=== PATIENT | male | born 1955 | race Caucasian/White ===

== ENCOUNTER 2019-09-27 09:56 | Observation (INO) | payer OTHER ==
[2019-09-27 10:35] VITALS: BMI 27.7
[2019-09-27] MEDS ORDERED: DIPHENHYDRAMINE 25 MG TAB/CAP PO PRN (11:00)
[2019-09-27] MEDS ORDERED: POLYETHYL GLY 3350 17 GM/DOSE PO PRN (11:00)
[2019-09-27] MEDS ORDERED: ONDANSETRON 4 MG/2 ML VIAL IV PRN (11:00)
[2019-09-27] MEDS ORDERED: LOPERAMIDE HCL 2 MG CAPSULE PO PRN (11:00)
[2019-09-27] MEDS ORDERED: ACETAMINOPHEN 325 MG TABLET PO PRN (11:00)
[2019-09-27] MEDS ORDERED: ONDANSETRON 4 MG (ODT) TAB PO PRN (11:00)
[2019-09-27] MEDS ORDERED: NACHLORIDE 0.45% 1,000 ML IV SCH (11:00)
[2019-09-27 11:26] LABS: Absolute Lymphocytes (CBC) 1.4 K/uL (0.7-4.9); Basophils % 0.3 % (0-1.3); Hematocrit 35.7 % (39.6-49.0); Lymphocytes % 25.1 % (15.3-44.8); MPV 10.3 fL (7.6-11.3); RBC Red Blood Cell Count 3.39 M/uL (4.33-5.43)
[2019-09-27 11:31] LABS: Protime INR 1.02
[2019-09-27 11:46] VITALS: O2SAT 96
[2019-09-27 12:21] LABS: ALT/SGPT 227 U/L (12-78); Albumin 2.7 g/dL (3.4-5.0); Alkaline Phosphatase 286 U/L (45-117); Amylase Level 100 U/L (25-115); BUN Blood Urea Nitrogen 8 mg/dL (7-18); Bicarbonate 29 mmol/L (21-32); Bilirubin Direct 1.7 mg/dL (0-0.2); Bilirubin Total 1.7 mg/dL (0.2-1.0); Glucose Level 112 mg/dL (74-106); HDL Cholesterol 19 mg/dL (40-60); LDL Cholesterol, Calculated ND (<130); Lipase 511 U/L (73-393); Magnesium 1.8 mg/dL (1.8-2.4); Phosphorus 2.3 mg/dL (2.5-4.9); Potassium 4.1 mmol/L (3.5-5.1); Protein, Total 7.9 g/dL (6.4-8.2); Sodium Level 131 mmol/L (136-145)
[2019-09-27 12:30] LABS: AST/SGOT 541 U/L (15-37); Blood Morphology Comment NOTED (NOT SEEN); Macrocytosis 1+; Platelet Estimate ADEQ; Urine White Blood Cell Casts OK
[2019-09-27 12:55] LABS: LDL, Direct 211 mg/dL (100-129)
[2019-09-27] MEDS ORDERED: INFLUENZA VACCINE (for 3y+) 0.5 ML DOSE IMVAC ONE (13:00)
[2019-09-27 13:14] LABS: Urine Appearance CLEAR; Urine Blood NEGATIVE (NEG); Urine Color DK YELLOW; Urine Glucose NEGATIVE (NEG); Urine Protein TRACE (NEG)
--- NOTE | 2019-09-27 13:37 | RAD REPORT ---
EXAM DESCRIPTION: CT - Abdomen Pelvis W Contrast - 09/27/2019 1:14 pm CLINICAL HISTORY: elevated liver enzymes COMPARISON: No comparisons TECHNIQUE: Biphasic, helical CT imaging of the abdomen and pelvis was performed following 100 ml non -ionic IV contrast. Oral contrast was given. All CT scans are performed using dose optimization technique as appropriate and may include automated exposure control or mA/KV adjustment according to patient size. FINDINGS: No suspicious findings in the lung bases. Patient has small hiatal hernia. Liver size is normal. No focal liver lesions seen. There is fatty infiltration throughout the liver. Patient has a geographic fatty infiltration pattern present. Left lobe of the liver does have fatty i nfiltration but to a lesser severity than the right lobe. Portal vein enhances normally. No liver cap ted nodularity. The spleen and pancreas show no suspicious findings. Gallbladder and biliary tree are also without lopez spicious finding. Symmetric renal function is seen with no hydronephrosis or suspicious renal mass. No pyelonephritis o r acute parenchymal process. No bladder abnormalities. No adrenal abnormalities. No prostate gland or seminal vesicle abnormality. Pelvic floor assessment is limited due to spray artifact from the right hip prosthesis. No dilated bowel loops or bowel wall thickening. Gastric assessment is limited due to the absence of content within the gastric lumen. No dilated large or small bowel. The appendix is normal. Patient lin s sigmoid diverticulosis and redundancy. No diverticulitis. No free air, free fluid or pneumatosis. T here is a mild blush or congested appearance to the central mesenteric fat. This can be commonly seen without a corresponding diagnosis. The patient has a few small mesenteric lymph nodes under 1 centim eter. The small bowel loops in this region do not show wall thickening or other acute component. No hernia, mass or bulky lymphadenopathy. There is a 15 millimeter soft tissue density in the poste rior right pelvis (image 59/92) that is probably a lymph node. This is relatively low-density soft ti ssue. In the absence of any other similar finding this is probably not of significance. Disc and bone degenerative changes are present. No acute component seen. Arterial tree calcifications are present. No acute vascular finding. IMPRESSION: Patient has fatty infiltration throughout the liver with no focal liver lesion. This is a geographic distribution with the fatty infiltration less severe in the left lobe. Additional nonacute findings are detailed in the body of the report. No worrisome or emergent finding seen.
[2019-09-27 13:43] LABS: Urine Bacteria <20 /HPF (NONE SEEN); Urine Bilirubin 1+/C (NEG); Urine Culture Reflex Order NOT NEEDED; Urine RBC <5 /HPF (NONE SEEN)
--- NOTE | 2019-09-27 14:18 | RAD REPORT ---
EXAM DESCRIPTION: RAD - Chest Pa And Lat (2 Views) - 09/27/2019 2:01 pm CLINICAL HISTORY: abd pain COMPARISON: Chest Single View dated 10/29/2017 TECHNIQUE: Frontal and lateral views of the chest were obtained. FINDINGS: The lungs are clear. Lung markings are similar to comparison. Heart size is normal and ce ntral vasculature is within normal limits. No pleural effusion or pneumothorax seen. No acute bony finding noted. No aortic abnormality. IMPRESSION: No acute cardiopulmonary process. No significant interval change.
--- NOTE | 2019-09-27 17:11 | EKG ---
Test Date: 2019-09-27 Test Time: 14:34:21 Morning Caregiver: LILY MEASUREMENT RESULTS: Intervals: Rate: 65 UT: 174 QRSD: 100 QT: 416 QTc: 432 [place]: P: 79 UT: 174 QRS: 67 T: 65 INTERPRETIVE STATEMENTS: Normal sinus rhythm Normal ECG Compared to ECG 10/29/2017 21:02:22 No significant changes Electronically Signed On 09-27-19 17:10:35 COIL TESTER by Adrián Sun
[2019-09-27 18:23] LABS: MPV 9.8 fL (7.6-11.3)
[2019-09-27 18:32] LABS: Platelet Estimate DECR
[2019-09-27] MEDS: ENOXAPARIN 40 MG/0.4 ML SQ SCH (21:13)
[2019-09-28 04:58] LABS: Potassium 3.7 mmol/L (3.5-5.1)
[2019-09-28 05:09] LABS: Absolute Lymphocytes (CBC) 1.9 K/uL (0.7-4.9); Basophils % 0.9 % (0-1.3); Hematocrit 31.2 % (39.6-49.0); Lymphocytes % 39.4 % (15.3-44.8); MPV 10.2 fL (7.6-11.3); RBC Red Blood Cell Count 2.91 M/uL (4.33-5.43)
[2019-09-28] MEDS: ENOXAPARIN 40 MG/0.4 ML SQ SCH (08:21)
[2019-09-28 08:47] VITALS: TEMP 97.7
[2019-09-28] MEDS ORDERED: VALSARTAN 160 MG TAB PO SCH (09:00)
[2019-09-28] MEDS ORDERED: FOLIC ACID 1 MG TABLET PO SCH (09:00)
[2019-09-28] MEDS ORDERED: PANTOPRAZOLE 40MG TABLET PO SCH (09:00)
[2019-09-28] MEDS ORDERED: THIAMINE HCL 100 MG TABLET PO SCH (09:00)
[2019-09-28] MEDS ORDERED: SERTRALINE HCL 50 MG TAB PO SCH (09:00)
[2019-09-28] MEDS ORDERED: POTASSIUM CL SA 10 MEQ TAB PO ONE (09:00)
[2019-09-28 10:20] VITALS: BP 148/75
[2019-09-28] MEDS ORDERED: NEBIVOLOL HCL 20 MG TABLET PO SCH (21:00)
[2019-09-28] MEDS ORDERED: ASPIRIN EC 81 MG TAB PO SCH (21:00)
[2019-09-28] MEDS ORDERED: ATORVASTATIN 20 MG TAB PO SCH (21:00)
--- NOTE | 2019-09-29 01:35 | DS ---
Date of Discharge: 09/28/2019 Final Diagnoses: Alcoholic hepatitis, increased lipases, increased bilirubin, direct bilirubin, mild anemia, mild thrombocytopenia, increased triglycerides to 692, which was about 4000 day before yeste rday. Assessment And Plan: Mr. Ty has been drinking heavy, but he denies to do so. His agrees th at he has been doing so. Comes to office a couple of days ago with excessive fatigue. I did blood w ork. His sodium was down to 124, now on admission yesterday it was up to 131. After I asked him to quit alcohol and I gave him some Librium for alcohol withdrawal, I gave him thiamine and folic acid f or deficiency which can happen in alcoholism. He is clinically lot better. His triglycerides have r educed from 4000 down to 600. The 4000 number could be possible because of acute pancreatitis from a lcohol abuse. He is clinically a lot better. He notes that he has alcoholic hepatitis. He needs to discontinue drinking alcohol. His MELD score is only 10, so I would say he is outpatient. He will be okay with outpatient therapy at this point. We are not giving steroids because steroids are recom mended only for MELD score more than 32. Patient is clinically stable. I will be watching his liver count and the blood count every month or so at this point. He is also supposed to go to Dr. Celena aguilar and Dr. Khan or Dr. Polk are not available on admission yesterday or today. Patient's condition i s stable. RVD/MODL Voice ID: [id number] Report ID: [id number]
[2019-09-30 04:44] LABS: HBsAG Nonreactive (Nonreactive)
== END 2019-09-28 10:36 | disposition home or self-care (01) ==
LOC: 2ND 10:08
PROVIDERS: ADMIT Internal Medicine; ATTEND Internal Medicine
DX: K70.10 Alcoholic hepatitis without ascites (principal); R79.89 Other specified abnormal findings of blood chemistry; D64.9 Anemia, unspecified; D69.6 Thrombocytopenia, unspecified; E78.1 Pure hyperglyceridemia; I10 Essential (primary) hypertension; R94.5 Abnormal results of liver function studies; Z23 Encounter for immunization
CPT/HCPCS: 93005; 87040; 85025 ×2; 81001; 80048 ×2; 36415 ×2; 82150; 83721; 83735; 84100; 85049; 85610; 84300; 80061; 80076; 85730; 84443; 82607; 83690; 83930; 83935; 80074; 86304; 74177; 71046; 90471; Q9967; Q2035; J1650; G0379; G0378 ×3

== ENCOUNTER 2020-07-25 11:42 | Inpatient (IN) | payer OTHER ==
--- OUTSIDE RECORDS SUMMARY | 2020-07-25 11:45 | XMS REPORT | Clinical Summary ---
:1955 Author Organization [facility] Address [address] [place] [address] Care Team Providers Name Role Phone Asked, Pcp Primary Care Provider Unavailable Allergies Not on File Medications Not on file Active Problems Not on file Social History Tobacco Use Types Packs/Day Years Used Date Never Assessed Sex Assigned at Date Recorded Not on file Last Filed Vital Signs Not on file Plan of Treatment Health Maintenance Due Date Last Done Comments COLONOSCOPY SCREENING 2006 SHINGLES VACCINES (#1) 2006 INFLUENZA VACCINE 04/19/2020 07/13/2018, 06/15/2017 Results Not on fileafter 07/25/2019 Advance Directives For more information, please contact: [phone] Type Date Recorded Patient Free [employer] Model Explanati on Advance Directives, Living Will and Medical Power of Adon
--- OUTSIDE RECORDS SUMMARY | 2020-07-25 11:47 | XMS REPORT | Continuity of Care Document ---
:1955 Author Organization [facility] t Address [address] [place] [address] Care Team Providers Name Role Phone NEHA Primary Care Physician Unavailable Logan LOZOYA Attending Clinician Unavailable Jeet Todd Attending Clinician NEHA Attending Clinician Unavailable Neha RONQUILLO Attending Clinician Jeet WILLAMS Attending Clinician Unavailable Darell SORENSON, M Attending Clinician Unavailable Kina SORENSON, C Attending Clinician Unavailable Ross RONQUILLO, H. 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 Social History Social Habit Start Date Stop Date Quantity Comments Source History of tobacco Current smoker MD Nesbitt use Sex Assigned At MD Alicia on Cigarettes smoked 2020-05-08 2020-05-08 MD Jamaal gillespie current (pack per 00:00:00 00:00:00 day) - Reported Tobacco use and 2020-05-08 2020-05-08 Never used MD Alicia on exposure 00:00:00 00:00:00 Alcohol intake 2020-05-08 2020-05-08 Current drinker MD Cande glez 00:00:00 00:00:00 of alcohol (finding) Smoking Status Start Date Stop Date Source Former smoker 2020-05-08 00:00:00 2020-05-08 00:00:00 MD Hendrix son Medications Ordered Filled Start Stop Current Ordering Indication Dosage Frequency Signature Comments Components Source Medication Medication Date Date Medication? Clinician (SIG) Name Name TURMERIC 2020-0 Yes 1000mg Take 1,000 M D (CURCUMIN 8-14 mg by Anderso MISC) 21:10: mouth n 29 daily. OMEGA-3/DHA 2020-0 Yes 1000mg Take 1,000 MD /EPA/FISH 8-14 mg by Anderso OIL 21:10: mouth n (OMEGA-3 29 daily. FISH OIL ORAL) doxycycline 2020-0 Yes 50mg Take 50 mg MD (VIBRAMYCIN 8-14 by mouth Jamaal rso ) 100 mg 21:10: daily. n tablet 29 VITAMIN E, 2020-0 Yes 1{capsu Take 1 MD DL,TOCOPHER 8-14 le} capsule by An derso YL ACET, 21:10: mouth n (VITAMIN E, 29 daily. ACETATE,) 1,000 units cap capsule magnesium 2020-0 Yes 1{tbl} Take 1 MD 250 mg tab 8-14 tablet by Jamaal rso 21:10: mouth n 29 daily. cholecalcif 2020-0 Yes 1000U Take 1,000 MD angel, 8-14 Units by Anderso vitamin D3, 21:10: mouth n 1,000 units 29 daily. tablet aspirin 81 2020-0 Yes 81mg Take 81 mg M D mg EC 8-14 by mouth Anderso tablet 21:10: once a n 29 week. atorvastati 2020-0 Yes 20mg Take 20 mg MD n (LIPITOR) 8-14 by mouth Jamaal rso 20 mg 21:10: at n tablet 29 bedtime. ferrous 2020-0 2020- No 325mg Take 325 MD sulfate 325 8-14 08-14 mg by Ravin o mg (65 mg 21:10: 00:00 mouth n elemental 01 :00 daily. iron per tablet) tablet AZILSARTAN 2020-0 2019- No 80mg Take 80 mg MD MED/CHLORTH 5-21 05-21 by mouth And erso ALIDONE 19:30: 00:00 daily. n (EDARBYCLOR 13 :00 ORAL) folic acid 2019- No 1200ug Take 1,200 MD (FOLVITE) 4-30 04-30 mcg by Anderso 400 mcg 14:44: 00:00 mouth n tablet 43 :00 daily. DEXILANT 60 Yes TAKE 1 MD mg capsule 1-15 CAPSULE BY And erso 00:00: MOUTH n 00 EVERY DAY cloNIDine Yes .1mg Take 0.1 MD HCl 9-21 mg by Anderso (CATAPRES) 00:00: mouth as n 0.1 mg 00 needed. tablet BYSTOLIC 20 Yes 20mg Take 20 mg MD mg tablet 8-29 by mouth Ravin o 00:00: at n 00 bedtime. chlorthalid 2019- No 25mg Take 25 mg MD one 8-16 02-13 by mouth Anderso (HYGROTON) 00:00: 00:00 daily. n 25 mg 00 :00 tablet cyanocobala 2016-09- No Vitamin B12 TAKE 1 MD min 2- 02-13 deficiency TABLET BY And erso (VITAMIN 00:00: 00:00 MOUTH n B-12) 1000 00 :00 EVERY DAY mcg tablet pantoprazol 2020- No TAKE 1 MD e 7-05 02-13 TABLET Anderso (PROTONIX) 00:00: 00:00 EVERY DAY n 40 mg EC 00 :00 30 MINUTES tablet BEFORE BREAKFAST tretinoin Yes Reported (RETIN-A) 5-25 on Anderso 0.1% cream 00:00: 01/27/2017 n 00 sulfacetami Yes WASH WITH M D de 9-08 DAILY Anderso sod-sulfur- 00:00: n urea 00 10-5-10 % clsr Immunizations Ordered Immunization Filled Immunization Date Status Commen ts Source Name Name Influenza, 2018-07-13 Completed MD Nesbitt Unspecified 00:00:00 Influenza (IM) 2017-06-15 Completed MD Jessica woo Preservative Free 00:00:00 Vital Signs Vital Name Observation Time Observation Value Comments Source Systolic blood pressure 2020-01-17 22:00:00 167 mm[Hg] MD Nesbitt Diastolic blood pressure 2020-01-17 22:00:00 90 mm[Hg] MD Nesbitt Heart rate 2020-01-17 22:00:00 60 /min MD Simeon black Body temperature 2020-01-17 22:00:00 36.78 Ramila MD Jeet stone Respiratory rate 2020-01-17 22:00:00 16 /min MD Jeet stone Oxygen saturation in 2020-01-17 22:00:00 99 /min MD Nesbitt Arterial blood by Pulse oximetry Body weight 2020-01-17 14:18:00 101.7 kg MD Simeon black BMI 2020-01-17 14:18:00 31.04 kg/m2 MD Simeon black Procedures Procedure Date / Time Performed Performing Clinician [facility] e COMPLETE BLOOD COUNT W/ 2020-05-06 16:40:00 Rachana Willams MD DIFFERENTIAL COMPREHENSIVE METABOLIC PANEL 2020-05-06 16:40:00 Joyce Willams MD IMMUNOGLOBULIN M SERUM 2020-05-06 16:40:00 Rachana Willams MD BETA 2 MICROGLOBULIN 2020-05-06 16:40:00 Rachana Willams MDson FREE LAMBDA LIGHT CHAIN 2020-05-06 16:40:00 Rachana Willams MD URIC ACID 2020-05-06 16:40:00 Rachana Willams MD MAGNESIUM LEVEL 2020-05-06 16:40:00 Rachana Willams MD LACTATE DEHYDROGENASE 2020-05-06 16:40:00 Rachana Willams MDrson PHOSPHORUS LEVEL 2020-05-06 16:40:00 Rachana Willams MD Ravin on Results CBC 2020-05-06 16:40:00 Rachana Willams MD MANUAL DIFFERENTIAL 2020-05-06 16:40:00 Rachana Willams MD And adina GLUCOSE LEVEL 2020-05-06 16:40:00 Rachana Willams MD BLOOD UREA NITROGEN 2020-05-06 16:40:00 Rachana Willams MD And adina ELECTROLYTE PANEL 2020-05-06 16:40:00 Rachana Willams MD SERUM CREATININE 2020-05-06 16:40:00 Rachana Willams MD Ravin on .GLOMERULAR FILTRATION RATE 2020-05-06 16:40:00 Rachana Willams MD CALCIUM LEVEL TOTAL 2020-05-06 16:40:00 Rachana Willams MD And erson ALBUMIN LEVEL 2020-05-06 16:40:00 Rachana Willams MD ALKALINE PHOSPHATASE 2020-05-06 16:40:00 Rachana Willams MD ALANINE AMINOTRANSFERASE 2020-05-06 16:40:00 Rachana Willams ASPARTATE AMINOTRANSFERASE 2020-05-06 16:40:00 Rachana Willams MD TOTAL PROTEIN 2020-05-06 16:40:00 Rachana Willams MD FRACTIONATED BILIRUBIN 2020-05-06 16:40:00 Rachana Willams MD FREE KAPPA/FREE LAMBDA RATIO 2020-05-06 16:40:00 Rachana Willams MD .DR. BELLE PROT ELEC PATH 2020-05-06 16:40:00 Rachana Willams MD REVIEW PROTEIN ELECTROPHORESIS URINE 2020-05-06 05:00:00 Joyce Willams MD URINE TOTAL PROTEIN 2020-05-06 05:00:00 Rachana Willams MD And teodoroon .TOTAL VOLUME 2020-05-06 05:00:00 Rachana Willams MD IMMUNOFIXATION 2020-05-06 05:00:00 Rachana Willams MD ELECTROPHORESIS URINE .DR. BRYAN U PROT ELEC PATH 2020-05-06 05:00:00 Rachana Willams MD REVIEW .DR CARIAS UIFE PATH REVIEW 2020-05-06 05:00:00 Rachana Willams MD COMPLETE BLOOD COUNT W/ 2020-01-29 16:05:00 Jose Solomon MDrsalana DIFFERENTIAL COMPREHENSIVE METABOLIC PANEL 2020-01-29 16:05:00 Jose Solomon MD MAGNESIUM LEVEL 2020-01-29 16:05:00 Jose Solomon MD URIC ACID 2020-01-29 16:05:00 Jose Solomon MD LACTATE DEHYDROGENASE 2020-01-29 16:05:00 Jose Solomon ersalana IMMUNOGLOBULIN M SERUM 2020-01-29 16:05:00 Jose Solomon MD derson IMMUNOFIXATION 2020-01-29 16:05:00 Jose Solomon MD ELECTROPHORESIS FREE LAMBDA LIGHT CHAIN 2020-01-29 16:05:00 Jose Solomon MD nderson BETA 2 MICROGLOBULIN 2020-01-29 16:05:00 Jose Solomon MD Jamaal rson PHOSPHORUS LEVEL 2020-01-29 16:05:00 Jose Solomon MD Results CBC 2020-01-29 16:05:00 Jose Solomon MD MANUAL DIFFERENTIAL 2020-01-29 16:05:00 Jose [facility] GLUCOSE LEVEL 2020-01-29 16:05:00 Jose Solomon MD BLOOD UREA NITROGEN 2020-01-29 16:05:00 Jose Solomon [facility] ELECTROLYTE PANEL 2020-01-29 16:05:00 [facility] SER[facility] CREATININE 2020-01-29 16:05:00 Jose Solomon MD .GLOMERULAR FILTRATION RATE 2020-01-29 16:05:00 Jose Solomon MD CALCIUM LEVEL TOTAL 2020-01-29 16:05:00 Jose Solomon MD [facility] ALBUMIN LEVEL 2020-01-29 16:05:00 Jose Solomon MD ALKALINE PHOSPHATASE 2020-01-29 16:05:00 Jose Solomon MD rsalana ALANINE AMINOTRANSFERASE 2020-01-29 16:05:00 Jose Solomon MD ASPARTATE AMINOTRANSFERASE 2020-01-29 16:05:00 Jose Solomon TOTAL PROTEIN 2020-01-29 16:05:00 Jose Solomon MD FRACTIONATED BILIRUBIN 2020-01-29 16:05:00 Jose Solomon MD FREE KAPPA/FREE LAMBDA RATIO 2020-01-29 16:05:00 Jose Solomon MD .DR. BRYAN DORA PATH REVIEW 2020-01-29 16:05:[address] BRYAN PROT ELEC PATH 2020-01-29 16:05:00 Jose Solomon MD REVIEW PROTEIN ELECTROPHORESIS URINE 2020-01-29 15:55:00 Jose Solomon MD IMMUNOFIXATION 2020-01-29 15:55:00 Jose Solomon MD ELECTROPHORESIS URINE .DR. BRYAN U PROT ELEC PATH 2020-01-29 15:55:00 Jose Solomon MD REVIEW .DR CARIAS UIFE PATH REVIEW 2020-01-29 15:55:00 Jose Solomon MD URINE TOTAL PROTEIN 2020-01-29 15:54:00 Jose Solomon MD Simeon son .TOTAL VOLUME 2020-01-29 15:54:00 Jose Solomon MD MRI WHOLE BODY 2020-01-17 20:54:01 Rachana Willams MD n BLOOD UREA NITROGEN 2020-01-17 15:07:00 Anahy Vaughn MD COMPLETE BLOOD COUNT W/ 2020-01-17 15:07:00 Anahy Vaughn MD DIFFERENTIAL SERUM CREATININE 2020-01-17 15:07:00 Anahy Vaughn MD ELECTROLYTE PANEL 2020-01-17 15:07:00 Anahy Vaughn MD nderson GLUCOSE, RANDOM 2020-01-17 15:07:00 Anahy Vaughn MD And erson SERUM CREATININE 2020-01-17 15:07:00 Anahy Vaughn MD .GLOMERULAR FILTRATION RATE 2020-01-17 15:07:00 Nazanin Vaughn MD Results CBC 2020-01-17 15:07:00 Anahy Vaughn MD And erson MANUAL DIFFERENTIAL 2020-01-17 15:07:00 Anahy Vaughn MD COMPLETE BLOOD COUNT W/ 2019-10-30 12:41:00 Rachana Willams MD DIFFERENTIAL COMPREHENSIVE METABOLIC PANEL 2019-10-30 12:41:00 Joyce Willams MD IMMUNOGLOBULIN M SERUM 2019-10-30 12:41:00 Rachana Willams MD BETA 2 MICROGLOBULIN 2019-10-30 12:41:00 Rachana Willams MD FREE LAMBDA LIGHT CHAIN 2019-10-30 12:41:00 Rachana Willams MD URIC ACID 2019-10-30 12:41:00 Rachana Willams MD MAGNESIUM LEVEL 2019-10-30 12:41:00 Rachana Willams MD Androbin woo LACTATE DEHYDROGENASE 2019-10-30 12:41:00 Rachana Willams MD nderson PHOSPHORUS LEVEL 2019-10-30 12:41:00 Rachana Willams MD Ravin on METHYLMALONIC ACID 2019-10-30 12:41:00 Rachana Willams MD Jamaal rson QUANTATIVE, SERUM VITAMIN B12 LEVEL 2019-10-30 12:41:00 Rachana Willams MD Simeon son FOLATE LEVEL 2019-10-30 12:41:00 Rachana Willams MD Androbin woo Results CBC 2019-10-30 12:41:00 Rachana Willams MD Androbin woo MANUAL DIFFERENTIAL 2019-10-30 12:41:00 Rachana Willams MD And erson GLUCOSE LEVEL 2019-10-30 12:41:00 Rachana Willams MD BLOOD UREA NITROGEN 2019-10-30 12:41:00 Rachana Willams MD And erson ELECTROLYTE PANEL 2019-10-30 12:41:00 Rachana Willams MD Simeon son SERUM CREATININE 2019-10-30 12:41:00 Rachana Willams MD Ravin on .GLOMERULAR FILTRATION RATE 2019-10-30 12:41:00 Rachana Willams MD CALCIUM LEVEL TOTAL 2019-10-30 12:41:00 Rachana Willams MD And erson ALBUMIN LEVEL 2019-10-30 12:41:00 Rachana Willams MD Andteodoroo amna ALKALINE PHOSPHATASE 2019-10-30 12:41:00 Rachana iWllams MD ALANINE AMINOTRANSFERASE 2019-10-30 12:41:00 Rachana Willams ASPARTATE AMINOTRANSFERASE 2019-10-30 12:41:00 Rachana Willams MD TOTAL PROTEIN 2019-10-30 12:41:00 Rachana Willams MD FRACTIONATED BILIRUBIN 2019-10-30 12:41:00 Rachana Willams MD FREE KAPPA/FREE LAMBDA RATIO 2019-10-30 12:41:00 Rachana Willams MD .DR. BRYAN PROT ELEC PATH 2019-10-30 12:41:00 Rachana Willams MD REVIEW PROTEIN ELECTROPHORESIS URINE 2019-10-30 12:33:00 Joyce Willams MD URINE TOTAL PROTEIN 2019-10-30 12:33:00 Rachana Willams MD And erson .TOTAL VOLUME 2019-10-30 12:33:00 Rachana Willams MD .DR. BRYAN U PROT ELEC PATH 2019-10-30 12:33:00 Rachana Willams MD REVIEW IMMUNOFIXATION 2019-10-30 12:33:00 Rachana Willams MD ELECTROPHORESIS URINE .DR CARIAS UIFE PATH REVIEW 2019-10-30 12:33:00 Rachana Willams MD Plan of Care Planned Activity Planned Date Details Comments Source Future Scheduled 2020-04-19 INFLUENZA VACCINE [place] [facility] 00:00:00 [code = INFLUENZA VACCINE] Future Scheduled 2006 COLONOSCOPY SCREENING [place] [facility] 00:00:00 [code = COLONOSCOPY SCREENING] Future Scheduled 2006 SHINGLES VACCINES [place] [facility] 00:00:00 (#1) [code = SHINGLES VACCINES (#1)] Encounters Start End Encounter Admission Attending Care Care Encounter Source Date/Time Date/Time Type Type Clinicians Facility Department ID 2020-05-02 Outpatient DARELLRENITA GAMAL MDA [id number] 15:38:29 Jessica woo 2020-05-08 2020-05-08 Outpatient AZAR SOLOMON MDA MDA [id number] 08:44:03 09:03:11 JOSE Alicia o amna 2020-05-06 2020-05-06 Outpatient AZAR WILLAMS MDA MDA [id number] 09:00:00 23:59:00 RACHANA woo Results Test Description Test Test Results Result Source Time Comments Comments Urine Prot ProE Path IntThe And adina Electrophoresis Path 20 follow-up urine Review 18:00:35 protein electrophoretic pattern no longer shows a clearly discernible Bence-Waldrop protein peak in the gamma region.However, please refer to concurrent urine immunofixation results for additional findings. Comment: CHRISTINA BRYAN MD PHD [id number] by: CHRISTINA BRYAN MD PHD [id number] Date/Time: 05.08.2020 13:00 PM CDT Transcribed Date/Time: 05.08.2020 13:00 PM CDTElectronically Signed By: CHRISTINA BRYAN MD PHD [id number] on 05.08.2020 13:00 PM [facility] Urine DORA Path 2020-04- UIFE Path IntThe MD Marcano nderson Review 20 follow-up urine 18:00:34 protein immunofixation electrophoretic patterns obtained with the use of antisera against IgG, IgA, IgM, bound and free [place] and Lambda light chain proteins still show the presence of a monotypic free lambda band in the gamma region. 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 Comment: CHRISTINA BRYAN MD PHD [id number] by: CHRISTINA BRYAN MD PHD [id number] Date/Time: 05.08.2020 13:00 PM CDT Transcribed Date/Time: 05.08.2020 13:00 PM CDTElectronically Signed By: CHRISTINA BRYAN MD PHD [id number] on 05.08.2020 13:00 PM [facility] DORA Urine 2020-05-08 18:00:33 Test Item Value Reference Range Interpretation Comme nts UIFE (test code = 7916) Lambda, +AL MD NesbittProtein Electrophoresis [id number] 18:00:32 Test Item Value Reference Range Interpretation Comments U Albumin % (test code = 67.0 % 30-50 H 7676) U Globulin% (test code = 33.0 % 50-70 L 8523) U Bence Waldrop (test code = see note 0-0 7696) U BJP/TV (test code = see note 7691) DYLAN (test code = DYLAN) Labs a few days before visit Lab Interpretation (test Abnormal code = 94931-4) MD NesbittProtein Electrophoresis Path [id number] 03:11:43SPE Path InterpThe follow-up serum protein electrophoretic pattern showsthat the M- protein peak is still present. It shows nosignificant change when compared to the previous M-proteinvalue on 01/29/2020. Comment: MD Devin BASURTO [id number] by: MD Devin [id number] Date/Time: 05.06.2020 22:11 PM CDT Transcribed Date/Time: 05.06.2020 22:11 PM CDTElectronically Signed By: MD Devin BASURTO [id number] on05.06.2020 22:11 PM [facility] Protein Electrophoresis 2020-05-07 03:11:42 Test Item Value Reference Range Interpretation Comments TOT PROTEIN (test code = 8.1 6.4- 8.3 gm/dL 8545) Albumin (test code = 4.3 3.6- 5.4 gm/dL 1751-7) Alpha 1 Globulin (test 0.3 0.2- 0.4 gm/dL code = 2865-4) Alpha 2 Globulin (test 0.7 0.5- 1.0 gm/dL code = 2868-8) Beta Globulin (test code = 2.0 0.5- 1.1 gm/dL H 2871-2) Gamma Globulin (test code 0.9 0.7- 1.6 gm/dL = 2874-6) Paraprotein1 (test code = 1.3 0.0- 0.0 gm/dL H 37026-7) DYLAN (test code = DYLAN) Labs a few days before visit Lab Interpretation (test Abnormal code = 66934-1) MD Thompson [place]/Free Lambda [id number] 19:37:03 Test Item Value Reference Range Interpretation Comments FKap/FLam RT (test code = 5566) 0.05 0.26-1.65 L Lab Interpretation (test code = Abnormal 18281-3) MD Thompson Lambda Light [id number] 19:37:02 Test Item Value Reference Range Interpretation Comments Free Lambda (test code = 340.65 mg/L 5.71-26.3 H 5630) DYLAN (test code = DYLAN) Labs a few days before visit Lab Interpretation (test Abnormal code = 42900-0) MD Thompson [place] Light [id number] 19:37:01 Test Item Value Reference Range Interpretation Comments Free [place] (test code 17.82 mg/L 3.3-19.4 = 5629) DYLAN (test code = DYLAN) Labs a few days before visit MD NesbittBeta 2 [id number] 19:37:00 Test Item Value Reference Range Interpretation Comments Beta2 Microglob (test code 3.0 mg/L 0.8-2.3 H = 5090) DYLAN (test code = DYLAN) Labs a few days before visit Lab Interpretation (test Abnormal code = 80382-9) MD [id number] 19:36:59 Test Item Value Reference Range Interpretation Comments IgM (test code = 6023) 28 mg/dL 35-242 L DYLAN (test code = DYLAN) Labs a few days before visit Lab Interpretation (test Abnormal code = 97968-3) MD [id number] 19:36:58 Test Item Value Reference Range Interpretation Comments IgG (test code = 6001) 910 mg/dL 610-1616 DYLAN (test code = DYLAN) Labs a few days before visit MD [id number] 19:36:57 Test Item Value Reference Range Interpretation Comments IgA (test code = 5992) 1619 mg/dL 85-499 H DYLAN (test code = DYLAN) Labs a few days before visit Lab Interpretation (test Abnormal code = 53986-3) MD NesbittBmjrvcjv54cy Urine Total [id number] 18:24:08 Test Item Value Reference Range Interpretation Comments UTP (test code = 9 mg/dL <=149 Caution is advised when 7921) interpreting va lues greater than 555 mg/dL. Results requiring exten ded dilution beyond the manu facturer's recommendedlimi t may not dilute linearly due to potential matri x effect.Correlat ion with clinical contex t is recommended. UTP/TV (test code 425 = 7923) MD NesbittTotal [id number] 17:38:08 Test Item Value Reference Range Interpretation Comments Total Volume (test code 4725 mL 7924-1333 H Carter ection = 7650) date/time has b een modified to: 00:00 :00. Previous collection date/time: 11:31:00.Correc anni from 4725 mL [H I] on 05/06/20 12:38:08 CDT by Darnell Barnett. Hrs Collected (test code 24 Col lection = 5928) date/time has b een modified to: 00:00 :00. Previous collection date/time: 11:31:00.Correc anni from 24 [NA] on 05/06/20 12:38: 08 CDT by Darnell Barnett. Start Date (test code = 05/05/2020 Carter ection 7382) date/time has b een modified to: 00:00 :00. Previous collection date/time: 11:31:00.Correc anni from 05/05/20 0:00:00 CDT [NA ] on 05/06/20 12:38: 08 CDT by Darnell Barnett. End Date (test code = 05/06/2020 Collec tion 5510) date/time has b een modified to: 00:00 :00. Previous collection date/time: 11:31:00.Correc anni from 05/06/20 0:00:00 CDT [NA ] on 05/06/20 12:38: 08 CDT by Darnell Barnett. U24 Comment (test code = 2 jars Col lection 6897) date/time has b een modified to: 00:00 :00. Previous collection date/time: 11:31:00.Correc anni from 2 jars [NA ] on 05/06/20 12:38: 08 CDT by Darnell Barnett. Lab Interpretation (test Abnormal code = 55197-0) MD NesbittFractionated [id number] 17:35:44 Test Item Value Reference Range Interpretation Comments Bili Total (test 0.3 mg/dL <=1.2 Indocyanine Green (ICG) code = 5096) may cause false ly elevated biliru bin results. Total and direct bilirubi n must not be measured from samples contain ing indocyanine gre en. False elevation of total bilirubin can be seen in patient s with IgG concentrati ons above 28 g/L. Bili Direct 0.3 mg/dL <=0.3 Indocyanine Gre en (ICG) (test code = may cause false ly 5094) elevated biliru bin results. Total and direct bilirubi n must not be measured from samples contain ing indocyanine gre en. DYLAN (test code = Labs a few days DYLAN) before visit MD NesbittUric [id number] 17:35:43 Test Item Value Reference Range Interpretation Comments Uric Acid (test code = 10.0 mg/dL 3.4-7 H 7955) DYLAN (test code = DYLAN) Labs a few days before visit Lab Interpretation (test Abnormal code = 38281-0) MD NesbittTotal [id number] 17:35:42 Test Item Value Reference Range Interpretation Comments Total Protein (test 8.1 g/dL 6.4-8.3 code = 7649) DYLAN (test code = DYLAN) Labs a few days before visit MD NesbittPhosphorus [id number] 17:35:41 Test Item Value Reference Range Interpretation Comments Phosphorus (test code = 3.9 mg/dL 2.5-4.5 6817) DYLAN (test code = DYLAN) Labs a few days before visit MD NesbittCalcium [id number] 17:35:40 Test Item Value Reference Range Interpretation Comments Calcium Lvl (test code 9.5 mg/dL 8.4-10.2 = 5258) DYLAN (test code = DYLAN) Labs a few days before visit MD [id number] 17:35:39 Test Item Value Reference Range Interpretation Comments ALT (test code = 4705) 28 U/L <=41 DYLAN (test code = DYLAN) Labs a few days before visit MD [id number] 17:35:38 Test Item Value Reference Range Interpretation Comments BUN (test code = 5055) 25 mg/dL 6-23 H DYLAN (test code = DYLAN) Labs a few days before visit Lab Interpretation (test Abnormal code = 37813-2) MD NesbittGlucose [id number] 17:35:36 Test Item Value Reference Range Interpretation Comments Glucose Level 93 mg/dL 70-99 Reference rang e is (test code = valid for fasti ng 5699) specimens only. Guidelines established by the [place] Diab[employer] es Association guidelines (Sta ndards of Medical Care in Diabetes 2016. Diabetes Care 2 016; 39: S13-22) are that a fasting gluco se of greater than or equal to 126 mg/dL or a random glucose greater than or equal to 200 mg/dL wi th symptoms, that are confirmed by re peat testing on a different day, meet the criteria fo r diabetes mellit us. DYLAN (test code = Labs a few days DYLAN) before visit MD NesbittGlomerular Filtration [id number] 17:35:35 Test Item Value Reference Range Interpretation Comments eGFR-AA (test 76 >=60 mL/min/1.73 Normal eGF R: >= 60 code = 8062) sq. m mL/min/1.73 m2N ote: The eGFR is calcula anni using the CKD-E PI equation. The e GFR declines with a ge. eGFR <60 mL/min/1.73 m2 is considered as "decreased". Th is equation should only be used for patien ts 18 and older. Acco rding to the National Ki dney Foundation's Ki dney Disease Outcome Quality Initiative (KDO QI) classification and 2012 Kidney Disease Improving Globa l Outcomes (KDIGO ) Clinical Practi ce Guideline, the stage of CKD should be categorized bas ed on estimated GFR. Stage Description GFR mL/min/1.73 m21 Normal or high GFR >=902 Mildly de creased GFR 60-893a Mildly to moderately decr eased GFR 45-593b Moderately to s everely decreased GFR 30-444 Severely decreased GFR 15-295 Kidney f ailure <15 eGFR-DANE (test 66 >=60 mL/min/1.73 Normal eG FR: >= 60 code = 8063) sq. m mL/min/1.73 m2N ote: The eGFR is calcula anni using the CKD-E PI equation. The e GFR declines with a ge. eGFR <60 mL/min/1.73 m2 is considered as "decreased". Th is equation should only be used for patien ts 18 and older. Acco rding to the National Ki dney Foundation's Ki dney Disease Outcome Quality Initiative (KDO QI) classification and 2012 Kidney Disease Improving Globa l Outcomes (KDIGO ) Clinical Practi ce Guideline, the stage of CKD should be categorized bas ed on estimated GFR. Stage Description GFR mL/min/1.73 m21 Normal or high GFR >=902 Mildly de creased GFR 60-893a Mildly to moderately decr eased GFR 45-593b Moderately to s everely decreased GFR 30-444 Severely decreased GFR 15-295 Kidney f ailure <15 DYLAN (test code Labs a few days = DYLAN) before visit MD NesbittMagnesium [id number] 17:35:34 Test Item Value Reference Range Interpretation Comments Magnesium (test code = 2.3 mg/dL 1.6-2.6 6359) DYLAN (test code = DYLAN) Labs a few days before visit MD [id number] 17:35:33 Test Item Value Reference Range Interpretation Comments LDH (test code = 233 U/L 135-225 H Results gre ater 6111) than 1651 U/L m ay not be reliable due to matrix effect with extended diluti on as it exceeds t he stenographer print shop s recommended limit. Caution should be exercised when interpreting lopez ch values and done in conjunction wit h clinical contex t. DYLAN (test code = DYLAN) Labs a few days before visit Lab Interpretation Abnormal (test code = 18208-6) MD NesbittAlkaline [id number] 17:35:32 Test Item Value Reference Range Interpretation Comments Alk Phos (test code = 98 U/L 40-129 4768) DYLAN (test code = DYLAN) Labs a few days before visit MD NesbittAlbumin [id number] 17:35:31 Test Item Value Reference Range Interpretation Comments Albumin Lvl (test code 4.3 3.5- 5.2 gm/dL = 4763) DYLAN (test code = DYLAN) Labs a few days before visit MD NesbittElectrolyte [id number] 17:35:30 Test Item Value Reference Range Interpretation Comments Sodium Lvl (test code = 135 136- 145 mEq/L L 7355) Potassium Lvl (test code = 4.7 3.5- 5.1 mEq/L 6854) Chloride (test code = 96 98- 107 mEq/L L 5279) CO2 (test code = 5227) 24 22- 29 mEq/L Anion Gap (test code = 15 4- 14 mEq/L H 9325) DYLAN (test code = DYLAN) Labs a few days before visit Lab Interpretation (test Abnormal code = 72666-2) MD NesbittAspartate [id number] 17:35:29 Test Item Value Reference Range Interpretation Comments AST (test code = 4731) 44 U/L <=40 H DYLAN (test code = DYLAN) Labs a few days before visit Lab Interpretation (test Abnormal code = 46176-2) MD Nesbitt.Serum [id number] 17:35:27 Test Item Value Reference Range Interpretation Comments Creatinine (test code = 1.17 mg/dL 0.67-1.17 5399) DYLAN (test code = DYLAN) Labs a few days before visit MD NesbittCmqzochvCbhhlwisvzzm0136-15-08 17:10:59 Test Item Value Reference Range Interpretation Comments Neutrophil % (test 50.7 % 42-66 code = 38369-8) Lymphocyte % (test 38.9 % 24-44 code = 737-7) Monocyte % (test code 8.6 % 2-7 H = 744-3) Eosinophil % (test 1.1 % 1-4 code = 713-8) Basophil % (test code 0.4 % 0-1 = 707-0) IGRE % (test code = 0.3 % 0-0.4 IGRE % c ount 44920-0) includes Metamyelocytes, Myelocytes, and Promyelocytes. Neutrophil Abs (test 3.58 K/uL 1.7-7.3 code = 753-4) Lymphocyte Abs (test 2.75 K/uL 1-4.8 code = 732-8) Monocyte Abs (test 0.61 K/uL 0.08-0.7 code = 743-5) Eosinophil Abs (test 0.08 K/uL 0.04-0.4 code = 712-0) Basophil Abs (test 0.03 K/uL 0-0.1 code = 705-4) IG Abs (test code = 0.02 K/uL 0-0.04 88132-0) DYLAN (test code = DYLAN) Labs a few days before visit Lab Interpretation Abnormal (test code = 32808-6) MD Nesbitt.[id number] 17:10:56 Test Item Value Reference Range Interpretation Comments WBC (test code = 7.1 K/uL 4-11 6690-2) RBC (test code = 3.83 4.50- 6.00 M/uL L 789-8) Hgb (test code = 12.9 14.0- 18.0 L 718-7) gm/dL Hct (test code = 37.8 % 40-54 L 4544-3) MPV (test code = 9.7 fL 4-10.4 H 787-2) MCH (test code = 33.7 pg 27-31 H 785-6) MCHC (test code = 34.1 31.0- 36.0 786-4) gm/dL RDW-SD (test code = 47.3 fL 35.1-46.3 H 75408-2) RDW-CV (test code = 13.2 % 12-15.5 788-0) Platelet count (test 350 K/uL 140-440 code = 777-3) INRBC (test code = 0.0 % <=0.0 The INRBC 5974) (instrument NRB C) value reflects the enumerationof nucleated red b lood cells contained in a 200uL sampleo f whole blood analyzed by the instrument. Thi s value maydiffer from the NRBC v alue reported in a manual differential,wh ich is based on a 1 00 cell differenti al. DYLAN (test code = DYLAN) Labs a few days before visit Lab Interpretation Abnormal (test code = 42985-3) MD NesbittProtein Electrophoresis Path [id number] 19:02:42SPE Path InterpThe follow-up serum protein electrophoretic pattern shows that the M- protein peak is still present in the beta region. It does, however, demonstrate an increase when compared to the previous M-protein value of 1.1 g/dL on 10/30/2019.Please note that due to comigration with normal beta globulins, sum total M-protein quantification may be less accurate and subject to increased inter-observer variability. Comment: CHRISTINA BRYAN MD PHD [id number] by: CHRISTINA BRYAN MD PHD [id number] Date/Time: 01.30.2020 14:02 PM CDT Transcribed Date/Time: 01.30.2020 14:02 PM CDTElectronically Signed By: CHRISTINA BRYAN MD PHD [id number] on 01.30.2020 14:02PM [facility] [id number] 19:02:41IFE Path IntThe follow-up serum protein immunofixation electrophoretic patterns obtained with the use of antisera against IgG, IgA, IgM, bound [place] and bound Lambda light chain proteins still show thepresence of two closely migrating IgA lambda M-protein bands in the beta-gamma junction region and suggest the possible presence of an indistinct lambda band that has a more cathodic migration.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 Comment: CHRISTINA BRYAN MD PHD [id number] by: CHRISTINA BRYAN MD PHD [id number] Date/Time: 01.30.2020 14:02 PM CDT Transcribed Date/Time: 01.30.2020 14:02 PM CDTElectronically Signed By: CHRISTINA BRYAN MD PHD [id number] on 01.30.2020 14:02 PM [facility]2020-05-13 19:02:40 Test Item Value Reference Range Interpretation Comments DORA (test code = AL x2, see note 5948) DYLAN (test code = DYLAN) Schedule labs 2-3 business days prior to clinic visit MD NesbittMR Whole [id number] 12:22:35Negative for myeloma.Interface, Radiology Results In - 01/18/2020 7:24 AM CDTFULL RESULT:Examination: MRI WHOLE BODY, 01/17/2020 3:54 PM.Clinical History: 64-year-old man with smoldering multiple myelomaIndication: restagingComparison: Complete bone survey with appendicular skeleton July 11, 2018Technique: Whole-body magnetic resonance imaging was performed without intravenous administration of con trast.Findings:Pattern of bone disease: Minimal (normal-appearing)Number of focal lesions: 0Soft tissue masses associated with bone lesions: AbsentInfiltration of the long bones: AbsentVertebral fractures: NoneOther fractures: NonePosterior iliac crests: No potential for sampling errorExtramedullary disease: AbsentOther pertinent positive and negative findings:1. Degenerative disc disease at C6/C7 (series 32 image 8) and throughout the lumbar spine (series 35 image 8) without significant spinal steno sis.2. Right total hip arthroplastyIMPRESSION:Negative for myeloma.MD Nesbitt Glucose, [id number] 16:04:18 Test Item Value Reference Range Interpretation Comments Glucose Random (test 104 mg/dL 70-199 Effecti ve 04/14/16, the code = 9360) glucose referen ce intervals have been updated based o n [place] [employer] vidal delines (Standards of M edical Care in Diabete s 2016. Diabetes Care 2 016; 39: S13-S22).Fastin g blood glucose:Normal: 70 99 mg/dLImpaire d fasting glucose (increa sed risk for diabetes or pre-diabetes): 100 125 mg/dLDiabet es mellitus: >/=1 26 mg/dL Random blood glucose:Normal: 70 199 mg/dLNote: Random glucose >100 mg /dL is associated with increased risk for diabetes MD NesbittMethylmalonic Acid Quant, [id number] 15:53:28 Test Item Value Reference Range Interpretation Comments MMA 0.28 nmol/mL <=0.40 -----ADDITIONAL Quant-[place] INFORMATION---- T (test code his test was de veloped and its = 59369-4) performance characteristics determined by [facility] in a manner consistent with CLIArequirement s. This test has not been cleare d or approved bythe U.S. Food and Drug Administration. Test Performed by:[address] [id number] Direct or: Michael Simms M.D. Ph. D.; IA# [id number] DYLAN (test Labs a few code = DYLAN) days before visit MD NesbittFolate [id number] 17:40:42 Test Item Value Reference Range Interpretation Comments Folate Lvl (test code 31.7 ng/mL 4.8-24.2 H Hemoly zed = 5625) specimens with Hemolysis Index >30.0 (30 mg/dL or visible hemolys is) may cause interference an d give falsely hi gh results. DYLAN (test code = DYLAN) Labs a few days before visit Lab Interpretation Abnormal (test code = 39911-8) MD NesbittVitamin B12 [id number] 15:59:55 Test Item Value Reference Range Interpretation Comments Vitamin B12 Lvl (test 764 pg/mL 211-946 code = 8017) DYLAN (test code = DYLAN) Labs a few days before visit MD Nesbitt
[2020-07-25 11:57] VITALS: BMI 30.5
[2020-07-25] MEDS ORDERED: CIPROFLOXACIN 400mg IV 400 MG/200 ML BAG IV SCH (12:30)
[2020-07-25 12:50] LABS: Absolute Lymphocytes (CBC) 1.7 K/uL (0.7-4.9); Basophils % 0.3 % (0-1.3); Hematocrit 34.1 % (39.6-49.0); Lymphocytes % 10.9 % (15.3-44.8); MPV 8.4 fL (7.6-11.3); RBC Red Blood Cell Count 3.42 M/uL (4.33-5.43)
[2020-07-25] MEDS ORDERED: ONDANSETRON 4 MG (ODT) TAB PO PRN (13:00)
[2020-07-25] MEDS ORDERED: ONDANSETRON 4 MG/2 ML VIAL IV PRN (13:00)
[2020-07-25] MEDS ORDERED: LOPERAMIDE HCL 2 MG CAPSULE PO PRN (13:00)
[2020-07-25] MEDS ORDERED: POLYETHYL GLY 3350 17 GM/DOSE PO PRN (13:00)
[2020-07-25] MEDS ORDERED: ACETAMINOPHEN 325 MG TABLET PO PRN (13:00)
[2020-07-25] MEDS ORDERED: DIPHENHYDRAMINE 25 MG TAB/CAP PO PRN (13:00)
[2020-07-25] MEDS: NACHLORIDE 0.45% 1,000 ML IV SCH ×2 (13:28→21:39)
[2020-07-25 13:31] LABS: Magnesium 2.1 mg/dL (1.8-2.4); Phosphorus 3.3 mg/dL (2.5-4.9); Potassium 4.5 mmol/L (3.5-5.1); Thyroid Stimulating Hormone 1.5 uIU/mL (0.360-3.740)
[2020-07-25] MEDS ORDERED: INFLUENZA VACCINE (for 3y+) 0.5 ML DOSE IMVAC ONE (14:00)
--- NOTE | 2020-07-25 15:10 | RAD REPORT ---
EXAM DESCRIPTION: Vangie Turner (2 Views)07/25/2020 2:51 pm CLINICAL HISTORY: Abdominal pain/preop for abdominal surgery COMPARISON: September 2019 FINDINGS: The lungs appear clear of acute infiltrate. The heart is normal size IMPRESSION: No acute abnormalities displayed
--- NOTE | 2020-07-25 15:20 | RAD REPORT ---
EXAM DESCRIPTION: CT - Chest Abdomen Pelvis W Cont - 07/25/2020 2:36 pm CLINICAL HISTORY: Chest and abdominal pain COMPARISON: CT abdomen September 2019 TECHNIQUE: Computed axial tomography of the chest, abdomen and pelvis was obtained. 100 cc Isovue-30 0 was administered intravenously. Oral contrast was given. All CT scans are performed using dose optimization technique as appropriate and may include automated exposure control or mA/KV adjustment according to patient size. FINDINGS: The lungs are clear. No mediastinal or hilar lymphadenopathy A pleural effusion is not present. A pericardial effusion is not noted. Small hiatal hernia Fatty liver The spleen, pancreas, adrenals and kidneys are unremarkable Small appendicolith. The appendix is dilated and fluid-filled. Large amount of stranding surrounds th e appendix. No abscess. No free air. Borders of the appendix are indistinct No evidence of diverticulitis IMPRESSION: Appendicitis. Borders of the appendix are indistinct which raises the possibility of a perforation
[2020-07-25 16:25] LABS: MPV 8.7 fL (7.6-11.3)
[2020-07-25 16:48] LABS: Platelet Estimate ADEQ
[2020-07-25] MEDS ORDERED: METRONIDAZOLE 500mg IVPB 500 MG/100 ML BAG IV SCH (17:00)
[2020-07-25 17:33] LABS: Urine Appearance CLEAR; Urine Bilirubin NEGATIVE (NEG); Urine Blood NEGATIVE (NEG); Urine Color YELLOW; Urine Glucose NEGATIVE (NEG); Urine Protein NEGATIVE (NEG); Urine Specific Gravity >=1.030 (1.005-1.030); Urine Urobilinogen 0.2 mg/dL (0.2-1.0)
[2020-07-25 17:37] LABS: Urine Microscopic Reflex NO UMIC
[2020-07-25] MEDS ORDERED: BUPIVACA 0.5%/EPI 0.0005%/PF 30 ML VIAL ONE (19:41)
--- NOTE | 2020-07-25 20:44 | P.OP ---
Preoperative diagnosis: Acute Appendicitis Postoperative diagnosis: Acute Perforated Appendicitis Primary procedure: Laparoscopic Appendectomy Anesthesia: GETA + Local Estimated blood loss: <5cc Specimen: Vermiform Appendix Findings: Perforated Appendiciits Complications: None Transferred to: Recovery Room Condition: Good
--- NOTE | 2020-07-25 22:43 | CON ---
Date of Consultation: 07/25/2020 Brief History Of Present Illness: The patient is a 64-year-old male, who presents to hospital with a pproximately 1-1/2 day history of periumbilical right lower quadrant abdominal pain. It was sharp, s tabbing in nature, progressively worsening over the course of the day. As such, he came to Dr. Pineda 's office with the above-stated complaints. He was directly admitted from Dr. Pineda's workup with co nfirmed evidence of acute appendicitis. As such, I was consulted to see the patient. He had no sick contacts. No recent travel. No new food exposures. He has no alleviating factors. The pain is wo rse with movement. He has some subjective fevers. No chills. Past Medical History: Significant for essential hypertension, essential tremor, transaminitis, CKD s tage 1, monoclonal gammopathy of unknown significance, carotid artery plaque, elevated antinuclear an tibody, IgA monoclonal gammopathy, hyponatremia, cholestasis, fatty steatosis of the liver. Home Medications: Include atorvastatin, clonidine, folic acid, furosemide, labetalol, spironolactone , thiamine. Review of Systems: Ten-point review of systems other than HPI, denies. Allergies: NO KNOWN DRUG ALLERGIES. Social History: He denies smoking, alcohol, or recreational drug use. Physical Examination: Vital Signs: At the time of examination, his BMI was 30.5, his blood pressure 149/70, respiratory ra te 87, pulse is 16, temperature 99.7, SpO2 100% on room air. General: He is awake, alert, and oriented. Psychiatric: Appropriate. Conversive. HEENT: Normocephalic. Sclerae anicteric. Mucous membranes are moist. Oropharynx is clear. Neck: Supple. No JVD. Chest: Normal expansion and excursion. Cardiovascular: Regular rhythm. Pulmonary: Clear to auscultation bilaterally. Abdomen: Soft with positive right lower quadrant focal peritonitis at McBurney's point. There is re bound. There is guarding. He has obvious peritonitis at this area. He has an umbilical hernia, whi ch is palpable and reducible. He has some discoloration of the skin in the suprapubic area over a la rge patch with a scaly appearance of the skin. Extremities: No clubbing, cyanosis, or edema. Skin: Warm and dry. Laboratory Data: White blood count of 16.3, hemoglobin 11.9, hematocrit 34.1, platelet count is 325, neutrophils are 78%. His PT is 11.8, INR is 1.0, PTT is 28.8. His sodium is 133, potassium 4.5, ch loride 98, carbon dioxide 26, BUN 19, creatinine 1.27, glucose is 114. His phos was 3.3, magnesium 2 .1, B12 was 634, TSH is 1.5. His UA was essentially negative. Hepatitis panel is currently pending. He had a CT scan of the chest, abdomen, pelvis performed, which showed acute appendicitis. Borders of the appendix were indistinct, which raise the possibility for perforation. He additionally had a fatty liver. Small appendicolith was noted. Large amount of stranding surrounds the appendix. No abscess or free air. No evidence of diverticulitis. Assessment And Plan: This is a 64-year-old male, who presents with signs and symptoms of acute appen dicitis. 1.IV fluid hydration. 2.Antibiotic coverage with Zosyn 3.375 IV q.6. 3.I have explained the risks, benefits, and alternatives of laparoscopic possible open appendectomy including, but not limited to bleeding, infection, damage to surrounding tissues, need for further op eration and procedure. The patient agrees to proceed as indicated. RODRICK/KODY Voice ID: [id number] Report ID: [id number]
--- NOTE | 2020-07-25 22:52 | OP ---
Date of Procedure: 07/25/2020 Surgeon: Coleman Fenton MD, Preoperative Diagnosis: Acute appendicitis. Postoperative Diagnosis: Acute perforated appendicitis. Procedures: 1.Laparoscopic appendectomy. 2.Abdominal washout. 3.Adhesiolysis. Anesthesia: General endotracheal plus local with 0.25% Marcaine with epinephrine. Estimated Blood Loss: Less than 5 mL. Specimens: Vermiform appendix. Findings: Perforated appendicitis. Complications: None. Condition: Transferred to recovery room in good condition. Procedure In Detail: After informed consent was obtained, the patient was brought to the operating r oom, prepped and draped in the usual sterile fashion. After adequate anesthesia was achieved, an inf raumbilical area was anesthetized with 0.25% Marcaine, sharply incised. A 5 mm 0-degree optical troc ar was introduced into the abdomen without evidence of complication. Insufflation was obtained to 15 mmHg at this time. There was no injury to vital structures upon entry into the abdomen. After insu fflation was verified to 15 mmHg, two additional trocars were placed, 1 in the right lower quadrant, 1 in the left lower quadrant. These were similarly anesthetized and sharply incised. A 5 mm trocars were introduced in the abdomen without evidence of complication. The umbilical trocar was then up-s ized to a 12 mm under direct visualization without evidence of complication. The patient was positio tiffanie head down and right side up position. Ratcheted grasper was used to grasp the patient's cecum an d following the tenia down, the appendix was identified and found to have some perforation with conta mination to the right colic gutter and right peritoneal abdominal wall. The appendix was removed fro m the lateral abdominal wall attachments using a combination of blunt dissection as well as LigaSure for some thick fibrous adhesions in this area. After these were taken down, a mesoappendiceal was cr eated with a [place] retractors. Endo MOLLY 35 blue load fired across the base of the appendix with g ood approximation of tissues and the mesoappendix was taken down using the LigaSure device. The appe ndix was then placed in EndoCatch bag, removed the umbilical trocar, and sent off for pathologic exam ination. There was some additional fat staining that had some feculent appearance to it along the il eal veil. This was taken down using the LigaSure device as well, placed in a separate EndoCatch bag, removed from the umbilical trocar and sent off for pathologic examination. The abdomen was then copper flotation operator iously irrigated multiple times until completely clear. All effluent was then suctioned out. The st aple line was found to be in good anatomic position. All feculent material was suctioned out and the abdominal effluent was then clean at this point. I irrigated the pelvis, suctioned it out once agai n, and rolled the omentum over this area of the repair. The patient was then positioned back in neut ral position and remainder of the effluent was removed. The umbilical trocar was removed. The umbil ical trocar site was closed using a Lj-Derek suture passer with 0 Vicryl in interrupted fashio n with good approximation of tissues. The abdomen was then completely desufflated under direct visua lization without evidence of complication. All remaining trocars were removed. All skin incisions w ere copiously irrigated and closed with 4-0 Monocryl in a running fashion. Dermabond placed over top . The patient tolerated the procedure well without any evidence of complication and transferred to P ACU in good condition. All counts were correct at the end of the case. RODRICK/KODY Voice ID: [id number] Report ID: [id number]
[2020-07-25] MEDS ORDERED: cloNIDine HCL 0.1 MG TAB PO PRN (23:43)
[2020-07-26] MEDS: PIPER/TAZO/NS 3.375gm 3.375 GM/100 ML BAG IVPB SCH ×5 (00:08→23:20)
[2020-07-26] MEDS ORDERED: PIPER/TAZO/NS 3.375gm 6.750 GM/200 ML BAG ONE (00:13)
[2020-07-26] MEDS: PANTOPRAZOLE 40MG TABLET PO SCH (05:28)
[2020-07-26 05:49] LABS: Basophils % 0.2 % (0-1.3); Hematocrit 35.8 % (39.6-49.0); Lymphocytes % 4.4 % (15.3-44.8); MPV 8.8 fL (7.6-11.3)
[2020-07-26 06:04] LABS: Magnesium 2.1 mg/dL (1.8-2.4); Phosphorus 3.8 mg/dL (2.5-4.9); Potassium 4.3 mmol/L (3.5-5.1)
[2020-07-26 07:10] LABS: Blood Morphology Comment NOT SEEN (NOT SEEN); Platelet Estimate ADEQ
[2020-07-26] MEDS: HOME MED 1 EA UNK PO SCH ×3 (07:28→20:58)
[2020-07-26] MEDS: DOXYCYCLINE 100 MG CAP PO SCH (07:28)
[2020-07-26] MEDS: FUROSEMIDE 20 MG TABLET PO SCH (07:28)
[2020-07-26] MEDS: MAGNESIUM OXIDE 400 MG TAB PO SCH (08:57)
[2020-07-26] MEDS ORDERED: ENOXAPARIN 40 MG/0.4 ML SQ SCH (09:00)
[2020-07-26] MEDS ORDERED: SPIRONOLACTONE 100 MG TAB PO SCH (09:00)
[2020-07-26] MEDS ORDERED: ASPIRIN EC 81 MG TAB PO SCH (09:00)
[2020-07-26] MEDS: LABETALOL HCL 100 MG TAB PO SCH ×2 (09:00→20:59)
[2020-07-26] MEDS: ENOXAPARIN 40 MG/0.4 ML SQ SCH (09:00)
--- NOTE | 2020-07-26 10:48 | P.PN ---
Subjective Date of Service: 07/26/20 Subjective: Improving (Patient feels better, tolerating clears) Physical Examination - Vital Signs Temperature: 98.7 F Blood Pressure: 139/77 Pulse: 79 Respirations: 20 Pulse Ox (%): 99 - Physical Exam General: Alert, In no apparent distress Respiratory: Clear to auscultation bilaterally Gastrointestinal: Other (soft, mild appropriate TTP, ND, incisions clean and dry) - Studies Laboratory Data (last 24 hrs) 07/26/20 05:32: Sodium 131 L, Potassium 4.3, BUN 17, Creatinine 1.22, Glucose 146 H, Phosphorus 3.8, Magnesium 2.1 07/26/20 05:32: WBC 21.4 H* D, Hgb 12.4 L, Hct 35.8 L, Plt Count 323 07/25/20 15:58: Plt Count 325 07/25/20 12:27: Sodium 133 L, Potassium 4.5, BUN 19 H, Creatinine 1.27, Glucose 114 H, Phosphorus 3.3, Magnesium 2.1 07/25/20 12:27: PT 11.8, INR 1.00, APTT 28.8 07/25/20 12:27: WBC 16.0 H, Hgb 11.9 L, Hct 34.1 L, Plt Count 349 Assessment And Plan - Current Problems (Diagnosis) (1) Perforated appendicitis Current Visit: Yes Status: Acute Plan: - continue zosyn - recheck labs in AM - serial exams - advance diet - continue IV hydration - incentive spirometry
[2020-07-26] MEDS: HYDROCODONE/APAP 5/325 MG TAB PO PRN ×3 (11:55→22:49)
--- NOTE | 2020-07-26 14:25 | P.PN ---
Subjective Date of Service: 07/26/20 Chief Complaint: HE IS DOING GREAT. Subjective: Improving SP APPENDECTOMY DOING GOOD FEELS WELL. Review of Systems 10-point ROS is otherwise unremarkable Musculoskeletal: As per HPI Physical Examination - Vital Signs Temperature: 98.5 F Blood Pressure: 133/73 Pulse: 82 Respirations: 20 Pulse Ox (%): 98 - Physical Exam General: Mild distress HEENT: Atraumatic, PERRLA, EOMI Neck: Supple, JVD not distended Respiratory: Clear to auscultation bilaterally, Normal air movement Cardiovascular: Regular rate/rhythm, Normal S1 S2 Gastrointestinal: Normal bowel sounds, No tenderness Musculoskeletal: No tenderness Integumentary: No rashes Neurological: Normal speech, Normal tone, Normal affect Lymphatics: No axilla or inguinal lymphadenopathy - Studies Laboratory Data (last 24 hrs) 07/26/20 05:32: Sodium 131 L, Potassium 4.3, BUN 17, Creatinine 1.22, Glucose 146 H, Phosphorus 3.8, Magnesium 2.1 07/26/20 05:32: WBC 21.4 H* D, Hgb 12.4 L, Hct 35.8 L, Plt Count 323 07/25/20 15:58: Plt Count 325 Medications List Reviewed: Yes Assessment And Plan - Current Problems (Diagnosis) (1) Perforated appendicitis Current Visit: Yes Status: Acute Plan: POST OP DAY 1 DOING WELL. WILL HAVE TO STAY ONE MORE DAY HE HAD PERFORATION AND WBC IS HIGH.
[2020-07-26] MEDS: FOLIC ACID 1 MG TABLET PO SCH (20:53)
[2020-07-26] MEDS: DOCOSAHEXANOIC AC/EPA 1000 MG PO SCH (20:53)
[2020-07-26] MEDS: ATORVASTATIN 20 MG TAB PO SCH (20:54)
[2020-07-26] MEDS ORDERED: HOME MED 1 EA UNK PO SCH ×2 (21:00)
[2020-07-27] MEDS: PIPER/TAZO/NS 3.375gm 3.375 GM/100 ML BAG IVPB SCH ×3 (05:18→17:02)
[2020-07-27] MEDS: PANTOPRAZOLE 40MG TABLET PO SCH (05:20)
[2020-07-27 05:34] VITALS: O2SAT 97
[2020-07-27 06:12] LABS: Absolute Lymphocytes (CBC) 1.5 K/uL (0.7-4.9); Basophils % 0.2 % (0-1.3); Hematocrit 35.8 % (39.6-49.0); MPV 8.8 fL (7.6-11.3); RBC Red Blood Cell Count 3.54 M/uL (4.33-5.43)
[2020-07-27 06:29] LABS: Potassium 3.7 mmol/L (3.5-5.1)
[2020-07-27] MEDS ORDERED: POTASSIUM CL SA 10 MEQ TAB PO ONE (09:00)
[2020-07-27] MEDS: HOME MED 1 EA UNK PO SCH ×3 (09:00→21:00)
[2020-07-27] MEDS: LABETALOL HCL 100 MG TAB PO SCH (09:00)
[2020-07-27] MEDS: FUROSEMIDE 20 MG TABLET PO SCH (09:00)
[2020-07-27] MEDS: HYDROCODONE/APAP 5/325 MG TAB PO PRN ×2 (09:07→21:33)
[2020-07-27] MEDS: NACHLORIDE 0.45% 1,000 ML IV SCH (09:07)
[2020-07-27] MEDS: MAGNESIUM OXIDE 400 MG TAB PO SCH (09:09)
[2020-07-27] MEDS: DOXYCYCLINE 100 MG CAP PO SCH (09:09)
[2020-07-27] MEDS: ENOXAPARIN 40 MG/0.4 ML SQ SCH (09:10)
[2020-07-27] MEDS: LABETALOL HCL 300 MG TAB PO SCH ×2 (10:00→21:29)
--- NOTE | 2020-07-27 10:41 | P.PN ---
Subjective Date of Service: 07/27/20 Chief Complaint: HE IS DOING GREAT. Subjective: Improving (Patient feels better today, had some constipation, but had a large BM which gave him relief.) Physical Examination - Vital Signs Temperature: 97.2 F Blood Pressure: 135/81 Pulse: 96 Respirations: 20 Pulse Ox (%): 97 - Physical Exam General: Alert, In no apparent distress, Cooperative HEENT: Mucous membr. moist/pink Respiratory: Diminished Cardiovascular: Regular rate/rhythm Gastrointestinal: Other (soft, mild appropriate TTP, ND, incisions clean and dry, no infection) Neurological: Normal speech - Studies Laboratory Data (last 24 hrs) 07/27/20 05:31: WBC 16.1 H D, Hgb 12.3 L, Hct 35.8 L, Plt Count 373 07/27/20 05:31: Sodium 133 L, Potassium 3.7, BUN 30 H, Creatinine 1.37 H, Glucose 130 H Medications List Reviewed: Yes Assessment And Plan - Current Problems (Diagnosis) (1) Perforated appendicitis Current Visit: Yes Status: Acute Plan: - Leukocytosis trending in right direction, however continues to be elevated, will recheck in AM, recommend another day of Zosyn. - recheck labs in AM - serial exams - advance diet - continue IV hydration - incentive spirometry - will likely DC home with augmentin x 5 days - likely DC on Tuesday
--- NOTE | 2020-07-27 12:53 | P.PN ---
Subjective Date of Service: 07/27/20 Chief Complaint: HE IS DISTENDED, NO BM YET. Subjective: Improving, C/O voiced SP APPENDECTOMY DOING GOOD FEELS WELL. YUKO HAS NOT HAD BM YET AND ABDOMEN IS DISTENDED. Review of Systems 10-point ROS is otherwise unremarkable Gastrointestinal: Distention Physical Examination - Vital Signs Temperature: 97.3 F Blood Pressure: 119/69 Pulse: 89 Respirations: 20 Pulse Ox (%): 98 - Physical Exam General: Mild distress HEENT: Atraumatic, PERRLA, EOMI Neck: Supple, JVD not distended Respiratory: Clear to auscultation bilaterally, Normal air movement Cardiovascular: Regular rate/rhythm, Normal S1 S2 Gastrointestinal: Absent bowel sounds, Distended Musculoskeletal: No tenderness Integumentary: No rashes Neurological: Normal speech, Normal tone, Normal affect Lymphatics: No axilla or inguinal lymphadenopathy - Studies Laboratory Data (last 24 hrs) 07/27/20 05:31: WBC 16.1 H D, Hgb 12.3 L, Hct 35.8 L, Plt Count 373 07/27/20 05:31: Sodium 133 L, Potassium 3.7, BUN 30 H, Creatinine 1.37 H, Glucose 130 H Medications List Reviewed: Yes Assessment And Plan - Current Problems (Diagnosis) (1) Perforated appendicitis Current Visit: Yes Status: Acute Plan: POST OP DAY 1 DOING WELL. WILL HAVE TO STAY ONE MORE DAY HE HAD PERFORATION AND WBC IS HIGH. (2) Ileus following gastrointestinal surgery Current Visit: Yes Status: Acute Plan: NGT SUCTION CONTINUED . IT SHOULD IMPROVE SOON.
[2020-07-27] MEDS: FOLIC ACID 1 MG TABLET PO SCH (21:00)
[2020-07-27] MEDS: ATORVASTATIN 20 MG TAB PO SCH (21:00)
[2020-07-27] MEDS: DOCOSAHEXANOIC AC/EPA 1000 MG PO SCH (21:00)
[2020-07-28] MEDS: PIPER/TAZO/NS 3.375gm 3.375 GM/100 ML BAG IVPB SCH ×2 (00:44→05:13)
[2020-07-28] MEDS: NACHLORIDE 0.45% 1,000 ML IV SCH (00:44)
[2020-07-28 04:19] LABS: Absolute Lymphocytes (CBC) 1.2 K/uL (0.7-4.9); Basophils % 0.3 % (0-1.3); Hematocrit 34.6 % (39.6-49.0); Lymphocytes % 9.2 % (15.3-44.8); MPV 8.8 fL (7.6-11.3); RBC Red Blood Cell Count 3.43 M/uL (4.33-5.43)
[2020-07-28 04:33] LABS: Potassium 4.2 mmol/L (3.5-5.1)
[2020-07-28] MEDS: PANTOPRAZOLE 40MG TABLET PO SCH (05:18)
[2020-07-28] MEDS: HYDROCODONE/APAP 5/325 MG TAB PO PRN (05:40)
[2020-07-28] MEDS: FUROSEMIDE 20 MG TABLET PO SCH (08:52)
[2020-07-28] MEDS: DOXYCYCLINE 100 MG CAP PO SCH (08:52)
[2020-07-28] MEDS: ENOXAPARIN 40 MG/0.4 ML SQ SCH (08:52)
[2020-07-28] MEDS: MAGNESIUM OXIDE 400 MG TAB PO SCH (08:53)
[2020-07-28] MEDS: HOME MED 1 EA UNK PO SCH (08:54)
[2020-07-28] MEDS: LABETALOL HCL 300 MG TAB PO SCH (08:54)
[2020-07-28] MEDS ORDERED: ASPIRIN EC 81 MG TAB PO SCH (09:00)
[2020-07-28 09:41] VITALS: BP 155/85; TEMP 97.8
--- NOTE | 2020-07-28 09:41 | P.PN ---
Subjective Date of Service: 07/28/20 Chief Complaint: s/p laparoscopic appendectomy for perforated appendicitis Subjective: Improving Physical Examination - Vital Signs Temperature: 97.8 F Blood Pressure: 155/85 Pulse: 80 Respirations: 18 Pulse Ox (%): 97 - Physical Exam General: Alert, In no apparent distress, Cooperative Respiratory: Clear to auscultation bilaterally, Normal air movement Gastrointestinal: Other (soft, mild appropriate TTP, ND, incisions clean and dry) - Studies Laboratory Data (last 24 hrs) 07/28/20 03:25: WBC 13.2 H D, Hgb 11.8 L, Hct 34.6 L, Plt Count 424 H 07/28/20 03:25: Sodium 133 L, Potassium 4.2, BUN 35 H, Creatinine 1.47 H, Glucose 136 H Microbiology Data (last 24 hrs): 07/25/20 12:27 Blood - Blood Anaerobic Blood Culture - Final Medications List Reviewed: Yes Assessment And Plan - Current Problems (Diagnosis) (1) Perforated appendicitis Current Visit: Yes Status: Acute Plan: - advance diet - incentive spirometry - will DC home with augmentin x 5 days - dc today
[2020-07-28] MEDS ORDERED: PIPER/TAZO/NS 3.375gm 3.375 GM/100 ML BAG IVPB SCH (17:00)
--- NOTE | 2020-07-28 20:54 | P.DS ---
Admission Date: 07/26/20 Discharge Date: 07/28/20 Disposition: ROUTINE DISCHARGE Discharge Condition: FAIR Reason for Admission: s/p laparoscopic appendectomy for perforated appendicitis - Problems (1) Perforated appendicitis Status: Acute (2) Ileus following gastrointestinal surgery Status: Acute Hospital Course: COMES TO OFFICE WITH RLQ ABDOMEN PAIN. I SUSPECTED APPENDICITIS. HE HAD COMPLICATED APPENDICITIS WITH PERFORMATION. IT TOOK ABOUT TWO DAYS FOR WBC TO IMPROVE. HE IS HAVING GOOD BM NOW AND IS STABLE TO GO HOME. DR. KRISHNAN GAVE DISCHRGE MEDS. Vital Signs/Physical Exam: Temp Pulse Resp BP Pulse Ox 97.8 F 80 18 155/85 H 97 07/28/20 09:41 07/28/20 09:41 07/28/20 09:41 07/28/20 09:41 07/28/20 09:41 Laboratory Data at Discharge: WBC 13.2 K/uL (4.3-10.9) H D 07/28/20 03:25 Hgb 11.8 g/dL (13.6-17.9) L 07/28/20 03:25 Hct 34.6 % (39.6-49.0) L 07/28/20 03:25 Plt Count Cancelled 07/28/20 15:45 PT 11.8 SECONDS (9.5-12.5) 07/25/20 12:27 INR 1.00 07/25/20 12:27 APTT 28.8 SECONDS (24.3-36.9) 07/25/20 12:27 Sodium 133 mmol/L (136-145) L 07/28/20 03:25 Potassium 4.2 mmol/L (3.5-5.1) 07/28/20 03:25 BUN 35 mg/dL (7-18) H 07/28/20 03:25 Creatinine 1.47 mg/dL (0.55-1.3) H 07/28/20 03:25 Glucose 136 mg/dL (74-106) H 07/28/20 03:25 Phosphorus 3.8 mg/dL (2.5-4.9) 07/26/20 05:32 Magnesium 2.1 mg/dL (1.8-2.4) 07/26/20 05:32 Home Medications: Aspirin [Aspirin EC 81 MG] 1 tab PO SEECOM 09/27/19 Atorvastatin Calcium [Lipitor*] 1 tab PO BEDTIME 09/27/19 Dexlansoprazole [Dexilant] 2 cap PO DAILY 09/27/19 Doxycycline Hyclate 1 cap PO DAILY 09/27/19 Folic Acid 1 tab PO BEDTIME 09/27/19 Cholecalciferol (Vitamin D3) [Vitamin D 1000 Iu Tab*] 1 tab PO BEDTIME 07/25/20 Clonidine HCl [Catapres] 1 tab PO DAILY PRN 07/25/20 Cyanocobalamin (Vitamin B-12) [Vitamin B-12] 1 tab PO BEDTIME 07/25/20 Furosemide 1 tab PO DAILY 07/25/20 Labetalol HCl [Trandate] 1 tab PO BID 07/25/20 Magnesium Oxide [Magnesium] 1 tab PO DAILY 07/25/20 [place]-3S/Dha/Epa/Fish Oil [Fish Oil [place]-3 Softgel] 1 cap PO BEDTIME 07/25/20 Spironolactone [Aldactone*] 1 tab PO DAILY 07/25/20 Diet: Regular Activity: No lifting more than 10 lbs Followup: Mike Pineda MD [ACTIVE - CAN ADMIT] - Coleman Krishnan MD [ACTIVE - CAN ADMIT] -
--- NOTE | 2020-07-29 12:09 | EKG ---
Test Date: 2020-07-25 Test Time: 14:01:46 Flight Superintendent: BERNIE MEASUREMENT RESULTS: Intervals: Rate: 83 DE: 164 QRSD: 104 QT: 358 QTc: 420 [place]: P: 56 DE: 164 QRS: 22 T: 22 INTERPRETIVE STATEMENTS: Normal sinus rhythm Normal ECG Compared to ECG 09/27/2019 14:34:21 No significant changes Electronically Signed On 07-29-20 12:03:40 CHIEF BUSINESS OFFICER by Daren Kruger
== END 2020-07-28 10:59 | disposition home or self-care (01) | DRG 339 ==
LOC: 2ND 11:42 → OBSVTOIN 07-26 09:34
PROVIDERS: ADMIT Internal Medicine; ATTEND Internal Medicine
PROC: 0DTJ4ZZ Resection of Appendix, Percutaneous Endoscopic Approach (ICD-10-PCS; principal; 2020-07-25 19:00)
DX: K35.32 Acute appendicitis with perforation, localized peritonitis, and gangrene, without abscess (principal); K56.7 Ileus, unspecified; I12.9 Hypertensive chronic kidney disease with stage 1 through stage 4 chronic kidney disease, or unspecified chronic kidney disease; N18.1 Chronic kidney disease, stage 1; D72.829 Elevated white blood cell count, unspecified; Z79.899 Other long term (current) drug therapy; Z79.82 Long term (current) use of aspirin; Z20.828 Contact with and (suspected) exposure to other viral communicable diseases
CPT/HCPCS: 36415; 71046; 71260; 74177; 80048; 80074; 81003; 82306; 82607; 82652; 83735; 84100; 84443; 85025; 85049; 85610; 85730; 87040; 88304; 93005; 94010; G0378; G0379; J0744; J1650; J2543; Q9967; U0002

== ENCOUNTER 2020-08-27 08:01 | Day surgery (SDC) | payer OTHER ==
[2020-08-27] MEDS ORDERED: Ringers Lactate 1,000 ML IV ONE (08:31)
[2020-08-27] MEDS ORDERED: CEFAZOLIN/SWI 1gm 1 GM/10 ML SYR ONE (08:31)
--- OUTSIDE RECORDS SUMMARY | 2020-08-27 08:51 | XMS REPORT | Clinical Summary ---
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
--- OUTSIDE RECORDS SUMMARY | 2020-08-27 08:53 | XMS REPORT | Continuity of Care Document ---
:1955 Author Organization [facility] t Address [address] [place] [address] Care Team Providers Name Role Phone NEHA Primary Care Physician Unavailable Logan LOZOYA Attending Clinician Unavailable Jeet Todd Attending Clinician NEHA Attending Clinician Unavailable Neha RONQUILLO Attending Clinician Jeet WILLAMS Attending Clinician Unavailable Alok SORENSON, M Attending Clinician Unavailable Kina SORENSON, C Attending Clinician Unavailable Ross RONQUILLO, HGarrison Attending Clinician Shan MANNING, Nhi Attending Clinician Unavailable Nhi Vaughn NP Attending Clinician Payers Payer Name Policy Type Policy Number Effective Date Expiration Date Vandana HERNANDEZ O [id number] 8720-01-01 00:00:00 Problems Condition Condition Condition Status Onset [...] use Sex Assigned At MD Alicia on Exposure to Not sure MD Nesbitt SARS-CoV-2 (event) Cigarettes smoked 2020-05-08 2020-05-08 MD Hinton rson current (pack per 00:00:00 00:00:00 day) - Reported Tobacco use and 2020-05-08 2020-05-08 Never used MD Alicia on exposure 00:00:00 00:00:00 Alcohol intake 2020-05-08 2020-05-08 Current drinker MD Cande glez 00:00:00 00:00:00 of alcohol (finding) Smoking Status Start Date Stop Date Source Former smoker 2020-05-08 00:00:00 2020-05-08 00:00:00 Simeon son Medications Ordered Filled Start Stop Current Ordering Indication Dosage Frequency Signature Comments Components Source Medication Medication Date Date Medication? Clinician (SIG) Name Name doxycycline 2019-09 Yes 50mg Take 50 mg MD hyclate 50 2-02 by mouth Simeon so mg tab 14:52: daily. n 17 labetalol 2019-09 Yes 300mg Take 300 MD (TRANDATE) 2-02 mg by Anderso 300 mg 14:52: mouth n tablet 17 twice daily. spironolact 2019-09 Yes 100mg Take 100 M D one 2-02 mg by Anderso (ALDACTONE) 14:52: mouth n 100 mg 17 daily. tablet furosemide 2019-09 Yes 20mg Take 20 mg M D (LASIX) 20 2-02 by mouth Simeon so mg tablet 14:52: daily. n 17 folic acid 2019-09 Yes 1mg Take 1 mg MD (FOLVITE) 1 2-02 by mouth Jamaal rso mg tablet 14:52: daily. n 17 cyanocobala 2019-09 Yes 1000ug Take 1,000 MD min 2-02 mcg by Anderso (vitamin 14:52: mouth n B-12) 1000 17 daily. mcg tablet TURMERIC 2019-09 Yes 1000mg Take 1,000 M D (CURCUMIN 2-02 mg by Anderso MISC) 14:49: mouth n 00 daily. OMEGA-3/DHA 2019-09 Yes 1000mg Take 1,000 MD /EPA/FISH 2-02 mg by Anderso OIL 14:49: mouth n (OMEGA-3 00 daily. FISH OIL ORAL) VITAMIN E, 2019-09 Yes 1{capsu Take 1 MD DL,TOCOPHER 2-02 le} capsule by Cande huffmanso YL ACET, 14:49: mouth n (VITAMIN E, 00 daily. ACETATE,) 1,000 units cap capsule magnesium 2019-09 Yes 1{tbl} Take 1 MD 250 mg tab 2-02 tablet by Jamaal rso 14:49: mouth n 00 daily. cholecalcif 2019-09 Yes 1000U Take 1,000 MD angel, 2-02 Units by Anderso vitamin D3, 14:49: mouth n 1,000 units 00 daily. tablet aspirin 81 2019-09 Yes 81mg Take 81 mg M D mg EC 2-02 by mouth 2 Anderso tablet 14:49: (two) n 00 times a week MTH. atorvastati 2019-09 Yes 20mg Take 20 mg MD n (LIPITOR) 202 by mouth Jamaal rso 20 mg 14:49: at n tablet 00 bedtime. ferrous 2019- No 325mg Take 325 MD sulfate 325 8-14 08-14 mg by Ravin o mg (65 mg 21:10: 00:00 mouth n elemental 01 :00 daily. iron per tablet) tablet AZILSARTAN 2019- No 80mg Take 80 mg MD [...] tablet pantoprazol 2020- No TAKE 1 MD benton 03-23 TABLET Anderso (PROTONIX) 00:00: 00:00 EVERY DAY n 40 mg EC 00 :00 30 MINUTES tablet BEFORE BREAKFAST tretinoin Yes 1{appli Apply 1 (RETIN-A) 5-25 cation} applicatio A nderso 0.1% cream 00:00: n n 00 topically to affected area(s) at bedtime. sulfacetami Yes WASH WITH M D de 05-27 DAILY Anderso sod-sulfur- 00:00: n urea 00 10-5-10 % clsr Immunizations Ordered Immunization Filled Immunization Date Status Commen ts Source Name Name Influenza, 2018-07-13 Completed MD Nesbitt Unspecified 00:00:00 Influenza (IM) 2017-06-15 Completed MD Jessica woo Preservative Free 00:00:00 Vital Signs Vital Name Observation Time Observation Value Comments Source WEIGHT 2020-08-20 08:24:00 99.8 kg WEIGHT 2020-08-20 08:24:00 99.8 kg Systolic blood pressure 2020-08-20 14:26:51 141 mm[Hg] MD Nesbitt Diastolic blood pressure 2020-08-20 14:26:51 64 mm[Hg] MD Nesbitt Heart rate 2020-08-20 14:26:51 85 /min MD Simeon black Body temperature 2020-08-20 14:26:51 36.72 Ramila MD Jeet stone Respiratory rate 2020-08-20 14:26:51 20 /min MD Jeet garciaon Oxygen saturation in 2020-08-20 14:26:51 99 /min MD Nesbitt Arterial blood by Pulse oximetry Body weight 2020-08-20 14:24:00 99.8 kg MD Simeon black BMI 2020-08-20 14:24:00 30.46 kg/m2 MD Simeon black Procedures Procedure Date / Time Performed Performing Clinician [facility] e ELECTROLYTE PANEL 2020-08-20 15:52:00 Jose Solomon MD METHYLMALONIC ACID 2020-08-20 15:52:00 Jose Solomon MD on QUANTATIVE, SERUM VITAMIN B12 LEVEL 2020-08-20 15:52:00 Jose Solomon MD FOLATE LEVEL 2020-08-20 15:52:00 Jose Solomon MD FERRITIN LVL 2020-08-20 15:52:00 Jose Solomon MD IRON LEVEL 2020-08-20 15:52:00 Jose Solomon MD TRANSFERRIN 2020-08-20 15:52:00 Jose Solomon MD COMPLETE BLOOD COUNT W/ 2020-08-18 17:17:00 Rachana Willams MD DIFFERENTIAL COMPREHENSIVE METABOLIC PANEL 2020-08-18 17:17:00 Joyce Willams MD IMMUNOGLOBULIN M SERUM 2020-08-18 17:17:00 Rachana Willams MD BETA 2 MICROGLOBULIN 2020-08-18 17:17:00 Rachana Willams MD derson FREE LAMBDA LIGHT CHAIN 2020-08-18 17:17:00 Rachana Willams MD URIC ACID 2020-08-18 17:17:00 Rachana Willams MD MAGNESIUM LEVEL 2020-08-18 17:17:00 Rachana Willams MD Androbin n LACTATE DEHYDROGENASE 2020-08-18 17:17:00 Rachana Willams MD nderson PHOSPHORUS LEVEL 2020-08-18 17:17:00 Rachana Willams MD Ravin on Results CBC 2020-08-18 17:17:00 Rachana Willams MD MANUAL DIFFERENTIAL 2020-08-18 17:17:00 Rachana Willams MD And erson GLUCOSE LEVEL 2020-08-18 17:17:00 Rachana Willams MD Androbin woo BLOOD UREA NITROGEN 2020-08-18 17:17:00 Rachana Willams MD And erson ELECTROLYTE PANEL 2020-08-18 17:17:00 Rachana Willams MD Simeon son SERUM CREATININE 2020-08-18 17:17:00 Rachana Willams MD Ravin on .GLOMERULAR FILTRATION RATE 2020-08-18 17:17:00 Rachana Willams MD CALCIUM LEVEL TOTAL 2020-08-18 17:17:00 Rachana Willams MD And erson ALBUMIN LEVEL 2020-08-18 17:17:00 Rachana Willams MD Androbin woo ALKALINE PHOSPHATASE 2020-08-18 17:17:00 Rachana Willams MD ALANINE AMINOTRANSFERASE 2020-08-18 17:17:00 Rachana Willams ASPARTATE AMINOTRANSFERASE 2020-08-18 17:17:00 Rachana Willams MD TOTAL PROTEIN 2020-08-18 17:17:00 Rachana Willams MD FRACTIONATED BILIRUBIN 2020-08-18 17:17:00 Rachana Willams MD FREE KAPPA/FREE LAMBDA RATIO 2020-08-18 17:17:00 Rachana Willams MD .DR. BELLE PROT ELEC PATH 2020-08-18 17:17:00 Rachana Willams MD REVIEW PROTEIN ELECTROPHORESIS URINE 2020-08-18 06:00:00 Joyce Willams MD URINE TOTAL PROTEIN 2020-08-18 06:00:00 Rachana Willams .TOTAL VOLUME 2020-08-18 06:00:00 Rachana Willams MD .DR. RANDI Medina PROT ELEC PATH 2020-08-18 06:00:00 Rachana Willams MD REVIEW COMPLETE BLOOD COUNT W/ 2020-05-06 16:40:00 Rachana Willams MD DIFFERENTIAL COMPREHENSIVE METABOLIC PANEL 2020-05-06 16:40:00 Joyce Willams MD IMMUNOGLOBULIN M SERUM 2020-05-06 16:40:00 Rachana Willams MD BETA 2 MICROGLOBULIN 2020-05-06 16:40:00 Rachana Willams MD FREE LAMBDA LIGHT CHAIN 2020-05-06 16:40:00 Rachana Willams MD URIC ACID 2020-05-06 16:40:00 Rachana Willams MD MAGNESIUM LEVEL 2020-05-06 16:40:00 Rachana Willams MD LACTATE DEHYDROGENASE 2020-05-06 16:40:00 Rachana Willams MD nderson PHOSPHORUS LEVEL 2020-05-06 16:40:00 Rachana Willams MD on Results CBC 2020-05-06 16:40:00 Rachana Willams MD MANUAL DIFFERENTIAL 2020-05-06 16:40:00 Rachana Willams MD And ersalana GLUCOSE LEVEL 2020-05-06 16:40:00 Rachana Willams MD BLOOD UREA NITROGEN 2020-05-06 16:40:00 Rachana Willams MD And erson ELECTROLYTE PANEL 2020-05-06 16:40:00 Rachana Willams MD Simeon son SERUM CREATININE 2020-05-06 16:40:00 Rachana Willams MD [...] PROTEIN 2020-05-06 05:00:00 Rachana Willams MD And erson .TOTAL VOLUME 2020-05-06 05:00:00 Rachana Willams MD IMMUNOFIXATION 2020-05-06 05:00:00 Rachana Willams MD ELECTROPHORESIS URINE .DR. RANDI Medina PROT ELEC PATH 2020-05-06 05:00:00 Rachana Willams MD REVIEW .DR CARIAS UIFE PATH REVIEW 2020-05-06 05:00:00 Rachana Willams MD COMPLETE BLOOD COUNT W/ 2020-01-29 16:05:00 Jose Solomon MDrson DIFFERENTIAL COMPREHENSIVE METABOLIC PANEL 2020-01-29 16:05:00 Jose Solomon MD MAGNESIUM LEVEL 2020-01-29 16:05:00 Jose Solomon MD URIC ACID 2020-01-29 16:05:00 Jose Solomon MD LACTATE DEHYDROGENASE 2020-01-29 16:05:00 Jose Solomon IMMUNOGLOBULIN M SERUM 2020-01-29 16:05:00 Jose Solomon MD derson IMMUNOFIXATION 2020-01-29 16:05:00 Jose Solomon MD ELECTROPHORESIS FREE LAMBDA LIGHT CHAIN 2020-01-29 16:05:00 Jose Solomon MD BETA 2 MICROGLOBULIN 2020-01-29 16:05:00 Jose Solomon MD rson PHOSPHORUS LEVEL 2020-01-29 16:05:00 Jose Solomon MD Results CBC 2020-01-29 16:05:00 Jose Solomon MD MANUAL DIFFERENTIAL 2020-01-29 16:05:00 Jose Solomon [facility]EV[facility] 2020-01-29 16:05:00 Jose Solomon MD BLOOD UREA NITROGEN 2020-01-29 16:05:00 Jose Solomon [facility] ELECTROLYTE PANEL 2020-01-29 16:05:00 Jose Solomon MD n SERUM CREATININE 2020-01-29 16:05:00 Jose Solomon MD .GLOMERULAR FILTRATION RATE 2020-01-29 16:05:00 Jose Solomon MD CALCIUM LEVEL TOTAL 2020-01-29 16:05:00 Jose Solomon MD Simeon son ALBUMIN LEVEL 2020-01-29 16:05:00 Jose Solomon MD ALKALINE PHOSPHATASE 2020-01-29 16:05:00 Jose Solomon MD rson ALANINE AMINOTRANSFERASE 2020-01-29 16:05:00 Jose Solomon MD ASPARTATE AMINOTRANSFERASE 2020-01-29 16:05:00 Jose Solomon TOTAL PROTEIN 2020-01-29 16:05:00 Jose Solomon MD FRACTIONATED BILIRUBIN 2020-01-29 16:05:00 Jose Solomon MD FREE KAPPA/FREE LAMBDA RATIO 2020-01-29 16:05:00 Jose oSlomon MD .DR. BRYAN DORA PATH REVIEW 2020-01-29 [...] WHOLE BODY 2020-01-17 20:54:01 Rachana Willams MD Androbin n BLOOD UREA NITROGEN 2020-01-17 15:07:00 Anahy [...] COMPLETE BLOOD COUNT W/ 2019-10-30 12:41:00 Rachana Willasm MD DIFFERENTIAL COMPREHENSIVE METABOLIC PANEL 2019-10-30 12:41:00 Joyce Willams MD IMMUNOGLOBULIN M SERUM 2019-10-30 12:41:00 Rachana Willams MD BETA 2 MICROGLOBULIN 2019-10-30 12:41:00 Rachana Willams MD FREE LAMBDA LIGHT CHAIN 2019-10-30 12:41:00 Rachana Willams MD URIC ACID 2019-10-30 12:41:00 Rachana Willams MD MAGNESIUM LEVEL 2019-10-30 12:41:00 Rachana Willams MD Andteodoroo amna LACTATE DEHYDROGENASE 2019-10-30 12:41:00 Rachana Willams MD [...] GLUCOSE LEVEL 2019-10-30 12:41:00 Rachana Willams MD Androbin woo BLOOD UREA NITROGEN 2019-10-30 12:41:00 Rachana Willams MD And erson ELECTROLYTE PANEL 2019-10-30 12:41:00 Rachana Willams MD Simeon son SERUM CREATININE 2019-10-30 12:41:00 Rachana Willams MD Ravin on .GLOMERULAR FILTRATION RATE 2019-10-30 12:41:00 Rachana Willams MD CALCIUM LEVEL TOTAL 2019-10-30 12:41:00 Rachana Willams MD And erson ALBUMIN LEVEL 2019-10-30 12:41:00 Rachana Willams MD ALKALINE PHOSPHATASE 2019-10-30 12:41:00 Rachana Willams MD ALANINE AMINOTRANSFERASE 2019-10-30 12:41:00 Rachana Willams [...] Future Scheduled 2020-04-19 INFLUENZA VACCINE [place] [facility] 00:00:00 [code = INFLUENZA VACCINE] Future Scheduled 2006 COLONOSCOPY SCREENING [place] [facility] 00:00:00 [code = COLONOSCOPY SCREENING] Future Scheduled 2006 SHINGLES VACCINES [place] [facility] 00:00:00 (#1) [code = SHINGLES VACCINES (#1)] Encounters Start End Encounter Admission Attending Care Care Encounter Source Date/Time Date/Time Type Type Clinicians Facility Department ID 2020-05-02 Outpatient RENITA LOZOYA MDA, MDA [id number] 15:38:29 Anderso amna 2020-08-20 2020-08-20 Outpatient AZAR SOLOMON MDA MDA [id number] 08:15:35 09:22:56 JOSE Ortegaers o n 2020-08-20 2020-08-20 Outpatient AZAR SOLOMON MDA MDA [id number] 09:21:28 09:21:28 JOSE Ravin o n 2020-08-18 2020-08-18 Outpatient AZAR WILLAMS MDA MDA [id number] 10:15:00 23:59:00 RACHANA woo 2020-05-08 2020-05-08 Outpatient AZAR SOLOMON MDA MDA [id number] 08:44:03 09:03:11 JOSE woo 2020-05-06 2020-05-06 Outpatient AZAR WILLAMS MDA MDA [id number] 09:00:00 23:59:00 RACHANA woo Results Test Description Test Test Results Result Source Time Comments Comments Protein Path InterpThe And erson Electrophoresis Path 02 follow-up serum Review 04:29:51 protein electrophoretic pattern showsthat the M-protein peak is still present. It does, however,show a mild decrease when compared to the previous M-proteinvalue of 1.3 gm/100 ml on 05/06/2020. Comment: MD Devin BASURTO [id number] by: MD Devin BASURTO [id number] Date/Time: 08.19.2020 22:29 PM RECREATION AIDE Transcribed Date/Time: 08.19.2020 22:29 PM CSTElectronically Signed By: MD Devin BASURTO [id number] on 08.19.2020 22:29 PM [facility] [place] Serum Protein Electrophoresis 2020-08-20 04:29:50 Test Item Value Reference Range Interpretation Comme nts TOT PROTEIN (test code = 8545) 7.6 6.4- 8.3 gm/dL Albumin (test code = 1751-7) 3.8 3.6- 5.4 gm/dL Alpha 1 Globulin (test code = 2865-4) 0.3 0.2- 0.4 gm/dL Alpha 2 Globulin (test code = 2868-8) 0.7 0.5- 1.0 gm/dL Beta Globulin (test code = 2871-2) 1.9 0.5- 1.1 gm/dL H Gamma Globulin (test code = 2874-6) 0.8 0.7- 1.6 gm/dL Paraprotein1 (test code = 01577-2) 1.0 0.0- 0.0 gm/dL H DYLAN (test code = DYLAN) Labs a few days before visit Lab Interpretation (test code = Abnormal 75236-8) MD NesbittUrine Prot Electrophoresis Path [id number] 22:21:35U ProE Path IntThe follow-up urine protein electrophoretic pattern shows no definitive evidence of aBence-Waldrop protein peak.If a Bence-Waldrop proteinuria is suspected clinically, serum free light chain and urine immunofixation studies are recommended. Comment: CHRISTINA BRYAN MD, PhD [id number] by: CHRISTINA BRYAN MD, PhD [id number] Date/Time: 08.19.2020 16:21 PM RECREATION AIDE Transcribed Date/Time: 08.19.2020 16:21 PM CSTElectronically Signed By: [place] [id number] on 08.19.2020 16:21 PM [facility] [place] AndersonProtein Electrophoresis [id number] 22:21:34 Test Item Value Reference Range Interpretation Comments U Albumin % (test code = 66.0 % 30-50 H 7676) U Globulin% (test code = 34.0 % 50-70 L 8523) DYLAN (test code = DYLAN) Labs a few days before visit Lab Interpretation (test Abnormal code = 21467-8) MD [id number] 16:03:28 Test Item Value Reference Range Interpretation Comments IgA (test code = 5992) 1292 mg/dL 85-499 H DYLAN (test code = DYLAN) Labs a few days before visit Lab Interpretation (test Abnormal code = 80232-6) MD NesbittDruhmzhx46hf Urine Total [id number] 21:54:33 Test Item Value Reference Range Interpretation Comments UTP (test code = 5 mg/dL <=149 Caution is advised when 7921) interpreting va lues greater than 555 mg/dL. Results requiring exten ded dilution beyond the manu facturer's recommendedlimi t may not dilute linearly due to potential matri x effect.Correlat ion with clinical contex t is recommended. UTP/TV (test code 250 = 7923) MD Thompson [place]/Free Lambda [id number] 20:30:42 Test Item Value Reference Range Interpretation Comments FKap/FLam RT (test code = 5566) 0.09 0.26-1.65 L Lab Interpretation (test code = Abnormal 82347-8) MD Thompson Lambda Light [id number] 20:30:41 Test Item Value Reference Range Interpretation Comments Free Lambda (test code = 279.59 mg/L 5.71-26.3 H 5630) DYLAN (test code = DYLAN) Labs a few days before visit Lab Interpretation (test Abnormal code = 96791-9) MD Thompson [place] Light [id number] 20:30:40 Test Item Value Reference Range Interpretation Comments Free [place] (test code = 24.03 mg/L 3.3-19.4 H 5629) DYLAN (test code = DYLAN) Labs a few days before visit Lab Interpretation (test Abnormal code = 27990-4) MD NesbittBeta 2 [id number] 20:30:39 Test Item Value Reference Range Interpretation Comments Beta2 Microglob (test code 3.5 mg/L 0.8-2.3 H = 5090) DYLAN (test code = DYLAN) Labs a few days before visit Lab Interpretation (test Abnormal code = 70384-3) MD [id number] 20:30:38 Test Item Value Reference Range Interpretation Comments IgM (test code = 6023) 24 mg/dL 35-242 L DYLAN (test code = DYLAN) Labs a few days before visit Lab Interpretation (test Abnormal code = 51972-2) MD [id number] 20:30:37 Test Item Value Reference Range Interpretation Comments IgG (test code = 6001) 887 mg/dL 610-1616 DYLAN (test code = DYLAN) Labs a few days before visit MD NesbittTotal [id number] 20:25:58 Test Item Value Reference Range Interpretation Comments Total Volume (test code 5000 mL 6090-9483 H Carter ection = 7650) date/time has b een modified to: 00:00 :00. Previous collection date/time: 11:03:00.Correc anni from 5000 mL [H I] on 08/18/20 14:25:58 RECREATION AIDE by Darnell Barnett. Hrs Collected (test code 24 Col lection = 5928) date/time has b een modified to: 00:00 :00. Previous collection date/time: 11:03:00.Correc anni from 24 [NA] on 08/18/20 14:25: 58 RECREATION AIDE by Darnell Barnett. Start Date (test code = 08/17/2020 Carter ection 7382) date/time has b een modified to: 00:00 :00. Previous collection date/time: 11:03:00.Correc anni from 08/17/20 0:00:00 RECREATION AIDE [NA ] on 08/18/20 14:25: 58 RECREATION AIDE by Darnell Barnett. End Date (test code = 08/18/2020 Collec tion 5510) date/time has b een modified to: 00:00 :00. Previous collection date/time: 11:03:00.Correc anni from 08/18/20 0:00:00 RECREATION AIDE [NA ] on 08/18/20 14:25: 58 RECREATION AIDE by Darnell Barnett. U24 Comment (test code = 2 jars Col lection 8547) date/time has b een modified to: 00:00 :00. Previous collection date/time: 11:03:00.Correc anni from 2 jars [NA ] on 08/18/20 14:25: 58 RECREATION AIDE by Darnell Barnett. Lab Interpretation (test Abnormal code = 98522-7) MD NesbittFractionated [id number] 18:05:32 Test Item Value Reference Range Interpretation Comments Bili Total (test 0.5 mg/dL <=1.2 Indocyanine Green code = 5096) (ICG) may cause falsely elevate d bilirubin resul ts. Total and direc t bilirubin must not be measured from s amples containing indo cyanine green. False el evation of total biliru bin can be seen in david ents with IgG concentrations above 28 g/L. Bili Direct (test 0.3 mg/dL <=0.3 Indocyanin e Green code = 5094) (ICG) may cause falsely elevate d bilirubin resul ts. Total and direc t bilirubin must not be measured from s amples containing indo cyanine green. Bili Indirect 0.2 mg/dL 0-0.9 (test code = 5095) DYLAN (test code = Labs a few days DYLAN) before visit MD NesbittGlomerular Filtration [id number] 18:05:30 Test Item Value Reference Range Interpretation Comments eGFR-AA (test 87 >=60 mL/min/1.73 Normal eGF R: >= 60 [...] 15-295 Kidney f ailure <15 eGFR-DANE (test 75 >=60 mL/min/1.73 Normal eG FR: >= 60 [...] few days = DYLAN) before visit MD NesbittUric [id number] 18:05:29 Test Item Value Reference Range Interpretation Comments Uric Acid (test code = 8.4 mg/dL 3.4-7 H 7955) DYLAN (test code = DYLAN) Labs a few days before visit Lab Interpretation (test Abnormal code = 66408-4) MD NesbittMagnesium [id number] 18:05:28 Test Item Value Reference Range Interpretation Comments Magnesium (test code = 2.0 mg/dL 1.6-2.6 6359) DYLAN (test code = DYLAN) Labs a few days before visit MD NesbittPhosphorus [id number] 18:05:27 Test Item Value Reference Range Interpretation Comments Phosphorus (test code = 4.1 mg/dL 2.5-4.5 6817) DYLAN (test code = DYLAN) Labs a few days before visit MD [id number] 18:05:26 Test Item Value Reference Range Interpretation Comments LDH (test code 182 U/L 135-225 Results great er than = 6111) 1651 U/L may no t be reliable due to matrix effect with ext ended dilution as it exceeds the manufacture r s recommended l imit. Caution should be exercised when interpreting lopez ch values and done in conjunction wit h clinical contex t. DYLAN (test code Labs a few days = DYLAN) before visit MD NesbittCalcium [id number] 18:05:25 Test Item Value Reference Range Interpretation Comments Calcium Lvl (test code 9.8 mg/dL 8.4-10.2 = 5258) DYLAN (test code = DYLAN) Labs a few days before visit MD NesbittAlkaline [id number] 18:05:24 Test Item Value Reference Range Interpretation Comments Alk Phos (test code = 112 U/L 40-129 4768) DYLAN (test code = DYLAN) Labs a few days before visit MD [id number] 18:05:23 Test Item Value Reference Range Interpretation Comments ALT (test code = 4705) 22 U/L <=41 DYLAN (test code = DYLAN) Labs a few days before visit MD NesbittAlbumin [id number] 18:05:22 Test Item Value Reference Range Interpretation Comments Albumin Lvl (test code 4.1 3.5- 5.2 gm/dL = 4763) DYLAN (test code = DYLAN) Labs a few days before visit MD [id number] 18:05:21 Test Item Value Reference Range Interpretation Comments BUN (test code = 5055) 19 mg/dL 6-23 DYLAN (test code = DYLAN) Labs a few days before visit MD NesbittAspartate [id number] 18:05:19 Test Item Value Reference Range Interpretation Comments AST (test code = 4731) 30 U/L <=40 DYLAN (test code = DYLAN) Labs a few days before visit MD NesbittGlucose [id number] 18:05:18 Test Item Value Reference Range Interpretation Comments Glucose Level (test 114 mg/dL 70-99 H Referenc e range is code = 5699) valid for fasti ng specimens only. Guidelines established by the [place] [employer] guidelines (Standards of Medical Care in Diabetes 2016. Diabetes Care 2016; 39: S13-2 2) are that a fast ing glucose of grea ter than or equal t o 126 mg/dL or a random glucose greater than or equal to 200 mg /dL with symptoms, that are confir med by repeat testi ng on a different day, meet the criteria for diabetes mellit us. DYLAN (test code = DYLAN) Labs a few days before visit Lab Interpretation Abnormal (test code = 49336-1) MD Nesbitt.Serum [id number] 18:05:16 Test Item Value Reference Range Interpretation Comments Creatinine (test code = 1.05 mg/dL 0.67-1.17 5399) DYLAN (test code = DYLAN) Labs a few days before visit MD NesbittTotal [id number] 18:05:15 Test Item Value Reference Range Interpretation Comments Total Protein (test 7.6 g/dL 6.4-8.3 code = 7649) DYLAN (test code = DYLAN) Labs a few days before visit MD Nesbi[id number] 17:33:02 Test Item Value Reference Range Interpretation Comments Neutrophil % (test 70.3 % 42-66 H code = 6491) Lymphocyte % (test 19.4 % 24-44 L code = 6194) Monocyte % (test code 8.3 % 2-7 H = 6422) Eosinophil % (test 1.3 % 1-4 code = 5520) Basophil % (test code 0.4 % 0-1 = 5068) IGRE % (test code = 0.3 % 0-0.4 IGRE % c ount 5958) includes Metamyelocytes, Myelocytes, and Promyelocytes. Neutrophil Abs (test 6.81 K/uL 1.7-7.3 code = 6492) Lymphocyte Abs (test 1.88 K/uL 1-4.8 code = 6195) Monocyte Abs (test 0.80 K/uL 0.08-0.7 H code = 6423) Eosinophil Abs (test 0.13 K/uL 0.04-0.4 code = 5521) Basophil Abs (test 0.04 K/uL 0-0.1 code = 5069) IG Abs (test code = 0.03 K/uL 0-0.04 5954) YDLAN (test code = DYLAN) Labs a few days before visit Lab Interpretation Abnormal (test code = 30427-4) MD Nesbitt.[id number] 17:32:59 Test Item Value Reference Range Interpretation Comments WBC (test code = 9.7 K/uL 4-11 8034) RBC (test code = 3.44 4.50- 6.00 M/uL L 6932) Hgb (test code = 11.5 14.0- 18.0 L 5898) gm/dL Hct (test code = 34.0 % 40-54 L 5860) MCV (test code = 99 fL 82-98 H 6222) MCH (test code = 33.4 pg 27-31 H 6220) MCHC (test code = 33.8 31.0- 36.0 6221) gm/dL RDW-SD (test code = 44.9 fL 35.1-46.3 6972) RDW-CV (test code = 12.4 % 12-15.5 6971) Platelet count (test 458 K/uL 140-440 H code = 6832) MPV (test code = 9.5 fL 4-10.4 6282) INRBC (test code = 0.0 % <=0.0 [...] visit Lab Interpretation Abnormal (test code = 82304-2) MD NesbittUrine DORA Path [id number] 18:00:34UIFE Path IntThe follow-up urine protein immunofixation electrophoretic patterns obtained with the use of antisera against IgG, IgA, IgM, bound and free [place] and Lambda light chain proteins still showthe presence of a monotypic free lambda band in the gamma region. 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 Comment: CHRISTINA BRYAN MD PHD [id number] by: CHRISTINA BRYAN MD PHD [id number] Date/Time: 05.08.2020 13:00 PM CDT Transcribed Date/Time: 05.08.2020 13:00 PM CDTElectronically Signed By: CHRISTINA BRYAN MD PHD [id number] on 05.08.2020 13:00 PM [facility] [id number] 18:00:33 Test Item Value Reference Range Interpretation Comments UIFE (test code = 7916) Lambda, +AL MD NesbittProtein Electrophoresis Path [id number] 19:02:42SPE Path InterpThe follow-up serum protein electrophoretic [...] 1403 6Dictated by: CHRISTINA BRYAN MD PHD [id number] Date/Time: 01.30.2020 14:02 PM CDT Transcribed Date/Time: 01.30.2020 14:02 PM CDTElectronically Signed By: CHRISTINA BRYAN MD PHD [id number] on 01.30.2020 14:02PM [facility] [id number] 19:02:41IFE Path IntThe follow-up serum protein immunofixation electrophoretic patterns obtained with the use of antisera against IgG, IgA, IgM, bound [place] and bound Lambda light chain proteins still show thepresence of two closely migrating IgA lambda M-protein bands in the beta-gamma junction region and suggest the possible presence of an indistinct lambda band that has a more cathodic migration.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 Comment: CHRISTINA BRYAN MD PHD [id number] by: CHRISTINA BRYAN MD PHD [id number] Date/Time: 01.30.2020 14:02 PM CDT Transcribed Date/Time: 01.30.2020 14:02 PM CDTElectronically Signed By: CHRISTINA BRYAN MD PHD [id number] on 01.30.2020 14:02 PM [facility]2020-[facility] 19:02:40 Test Item Value Reference Range Interpretation Comments DORA (test code = AL x2, see note 5948) DYLAN (test code = DYLAN) Schedule labs 2-3 business days prior to clinic visit MD NesbittMRI Whole [id number] 12:22:35Negative for myeloma.Interface, Radiology Results In - [...] total hip arthroplastyIMPRESSION:Negative for myeloma.MD Nesbitt Glucose, [id number] 16:04:18 Test Item Value Reference Range Interpretation Comments Glucose Random (test 104 mg/dL 70-199 Effecti ve 04/14/16, the code = 9360) glucose referen ce intervals have been updated based o n [place] [employer] vidal delines (Standards of M edical Care in Diabete s 2016. Diabetes Care 2 016; 39: S13-S22).Fastin g blood glucose:Normal: 70 99 mg/dLImpaire d fasting glucose (increa sed risk for diabetes or pre-diabetes): 100 125 mg/dLDiabet es mellitus: >/=1 26 mg/dL Random blood glucose:Normal: 70 199 mg/dLNote: Random glucose >100 mg /dL is associated with increased risk for diabetes MD Nesbitt
[2020-08-27] MEDS ORDERED: ROCURONIUM 50 MG/5 ML VIAL IV ONE (09:38)
[2020-08-27] MEDS ORDERED: FENTANYL CITR 100 MCG/2 ML ONE (09:38)
[2020-08-27] MEDS ORDERED: MIDAZOLAM HCL 2 MG/2 ML INJ ONE (09:38)
[2020-08-27] MEDS ORDERED: propofoL 200 MG/20 ML VIAL IV ONE ×2 (09:38→10:44)
[2020-08-27] MEDS ORDERED: LIDOCAINE 1% MPF 5 ML VIAL ONE (09:38)
[2020-08-27] MEDS ORDERED: BUPIVACA 0.5%/EPI 0.0005%/PF 30 ML VIAL ONE (09:39)
[2020-08-27] MEDS ORDERED: ONDANSETRON 4 MG/2 ML VIAL ONE (10:14)
[2020-08-27] MEDS ORDERED: KETOROLAC 30 MG/ML INJ ONE (10:14)
[2020-08-27] MEDS ORDERED: GLYCOPYRROLATE 0.2 MG/ML SYR ONE (10:17)
--- NOTE | 2020-08-27 10:36 | P.OP ---
Preoperative diagnosis: Ventral Abdominal Wall Hernia - supraumbilical Postoperative diagnosis: Ventral Abdominal Wall Hernia - supraumbilical Primary procedure: Laparoscopic Ventral Henria Repair with mesh Anesthesia: GETA + Local Estimated blood loss: <10cc Specimen: none Findings: ~3cm Ventral Abdominal Wall Hernia - supraumbilical Complications: None Implants: 11.4cm Round ventralite ST with echo position Transferred to: Recovery Room Condition: Good
[2020-08-27] MEDS ORDERED: NEOSTIGMINE 1 MG/ML -5 ML ONE (10:40)
[2020-08-27] MEDS ORDERED: PROMETHAZINE INJ 25 MG/ML AMP IV ONE (10:52)
[2020-08-27] MEDS ORDERED: PROMETHAZINE INJ 25 MG/ML AMP ONE (11:06)
[2020-08-27] MEDS ORDERED: HYDROMORPHONE HCL 1 MG/ML INJ ONE (11:06)
[2020-08-27 11:17] VITALS: TEMP 97.8
--- NOTE | 2020-08-27 11:58 | OP ---
Date of Procedure: 08/27/2020 Surgeon: Anni Fenton MD, Preoperative Diagnosis: Ventral abdominal hernia, supraumbilical position. Postoperative Diagnosis: Ventral abdominal hernia, supraumbilical position. Procedure Performed: Laparoscopic ventral hernia repair with mesh. Anesthesia: General endotracheal plus local. Estimated Blood Loss: Less than 10 mL. Specimen: None. Findings: Approximately 3 cm ventral abdominal wall hernia in the supraumbilical position. There wa s omental entrapment, none in the previous abdominal incision. There was no evidence of incisional h ernia. Complications: None. Implants: 11.[address] Bard [address]ight ST mesh with Echo Positioning System. Disposition: The patient transferred to recovery room in good condition. Procedure In Detail: After informed consent was obtained, patient was brought to the operating room, prepped and draped in the usual sterile fashion. After adequate anesthesia was achieved, an area of the left upper quadrant was anesthetized appropriately, sharply incised. A 5 mm 0-degree optical tr ocar was placed in the abdomen without evidence of complication, insufflation was obtained to 15 mmHg . There was no injury to any vital structures. Additional trocar site was chosen in the left lower quadrant. This was similarly anesthetized and sharply incised. A 12 mm trocar was placed under dire ct visualization without evidence of complication. The LigaSure device was then used to take the ome ntal contents out of the supraumbilical ventral abdominal hernia. There was no evidence of incisiona l hernia from the previous surgical site. After the omentum was returned to the normal anatomic posi tion, some preperitoneal fat was removed and then sent off on the back table. The area was inspected at this point. Good hemostasis was achieved. As such, I then brought in a 0 V-Loc suture on an End o stitch and using a running suture, I closed the abdominal wall defect with V-Loc suture in a primar y repair fashion. At this point, I then sized the small mesh that we had which was 11.4 cm round Angel tralight ST mesh with Echo Positioning System. It was brought in through the trocar positioned using the Alex suture passer through the central portion of the 3 cm defect, which was now sewn closed. After appropriately anesthetizing the tract, the Echo Positioning System was deployed and u sing absorbable fixation tacks, I placed a double crown fixation to the anterior abdominal wall, marcella edilia the deployment system intact and then secured the mesh to the anterior abdominal wall using remai audelia absorbable fixation tacks. Approximately 60 tacks were used to secure the mesh to the anterior abdominal wall with good approximation. There was no bleeding from the site at this time. The [employer] nickie-Derek suture passer was then used to close the 12 mm trocar site with a 0 Vicryl in an interrupt ed fashion. Good apposition of the tissues. The abdomen was completely desufflated under direct vis ualization without evidence of complication. At this point, all skin incisions were copiously irriga anni and had some minimal bleeding of the venous type from the fat plane. Therefore, I placed a figur e-of-eight 3-0 Vicryl suture with good hemostasis at this point. I then irrigated the area once agai n, cleansed the incisions, and closed the incisions with 4-0 Monocryl in a running fashion. Dermabon d was placed over top. Patient tolerated the procedure well without evidence of complication, transf erred to PACU in good condition with abdominal binder placed. All counts were correct at the end of the case. RODRICK/KODY Voice ID: [id number] Report ID: [id number]
[2020-08-27] MEDS ORDERED: HYDROCODONE/APAP 10/325 TAB ONE (12:48)
[2020-08-27 15:42] VITALS: BP 135/64; O2SAT 97
== END 2020-08-27 13:30 | disposition home or self-care (01) ==
LOC: OR 08:01
PROVIDERS: ATTEND Surgery
PROC: 0WUF4JZ Supplement Abdominal Wall with Synthetic Substitute, Percutaneous Endoscopic Approach (ICD-10-PCS; principal; 2020-08-27 09:15)
DX: K43.9 Ventral hernia without obstruction or gangrene (principal); Z20.828 Contact with and (suspected) exposure to other viral communicable diseases; I10 Essential (primary) hypertension; K21.9 Gastro-esophageal reflux disease without esophagitis; R25.1 Tremor, unspecified
CPT/HCPCS: 88302; 49652; U0002; J2704 ×2; J2550 ×2; J2250; J3010; J1170; J2710; J0690; J7120; J2405; C1781

== ENCOUNTER 2020-09-27 20:09 | Emergency (ER) | payer OTHER ==
--- OUTSIDE RECORDS SUMMARY | 2020-09-27 20:11 | XMS REPORT | Clinical Summary ---
:1955 Author Organization [facility] Address [address] [place] [address] Care Team Providers Name Role Phone Asked, Pcp Primary Care Provider Unavailable Allergies Not on File Medications Not on file Active Problems Not on file Social History Tobacco Use Types Packs/Day Years Used Date Never Assessed Sex Assigned at Date Recorded Not on file Last Filed Vital Signs Not on file Plan of Treatment Health Maintenance Due Date Last Done Comments COVID-19 VACCINE (#1) 1972 COLONOSCOPY SCREENING 2006 SHINGLES VACCINES (#1) 2006 INFLUENZA VACCINE 04/19/2020 07/13/2018, 06/15/2017 Results Not on fileafter 09/27/2019 Advance Directives For more information, please contact: [phone] Type Date Recorded 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
--- OUTSIDE RECORDS SUMMARY | 2020-09-27 20:13 | XMS REPORT | Continuity of Care Document ---
:1955 Author Organization [facility] t Address [address] [place] [address] Care Team Providers Name Role Phone NEHA [...] Effective Date Expiration Date Vandana HERNANDEZ O [id number] 7183-01-01 00:00:00 Problems Condition Condition Condition Status Onset [...] Alicia on Cigarettes smoked 2020-05-08 2020-05-08 MD Hinton rsalana current (pack per 00:00:00 00:00:00 day) - [...] MD DL,TOCOPHER 2-02 le} capsule by Cande cordon YL ACET, 14:49: mouth n (VITAMIN E, [...] Take 81 mg M D mg EC 02 by mouth 2 Anderso tablet 14:49: (two) [...] :00 daily. iron per tablet) tablet AZILSARTAN No 80mg Take 80 mg MD MED/CHLORTH [...] 00 :00 EVERY DAY mcg tablet pantoprazol 2019- No TAKE 1 MD e 7-05 02-13 [...] Procedure Date / Time Performed Performing Clinician Sour e ELECTROLYTE PANEL 2020-08-20 15:52:00 Jose Solomon [...] 2 MICROGLOBULIN 2020-08-18 17:17:00 Rachana Willams MD FREE LAMBDA LIGHT CHAIN 2020-08-18 17:17:00 Rachana Willams MD URIC ACID 2020-08-18 17:17:00 Rachana Willams MD Androbin woo MAGNESIUM LEVEL 2020-08-18 17:17:00 Rachana Willams MD Andteodoroo n LACTATE DEHYDROGENASE 2020-08-18 17:17:00 Rachana Willams MD nderson PHOSPHORUS LEVEL 2020-08-18 17:17:00 Rachana Willams MD Ravin on Results CBC 2020-08-18 17:17:00 Rachana Willams MD Andteodoroo n MANUAL DIFFERENTIAL 2020-08-18 17:17:00 Rachana Willams MD And erson GLUCOSE LEVEL 2020-08-18 17:17:00 Rachana Willams MD Anderso n BLOOD UREA NITROGEN 2020-08-18 17:17:00 Rachana Willams MD And erson ELECTROLYTE PANEL 2020-08-18 17:17:00 Rachana Willams MD Simeon son SERUM CREATININE 2020-08-18 17:17:00 Rachana Willams MD Ravin on .GLOMERULAR FILTRATION RATE 2020-08-18 17:17:00 Rachana Willams MD CALCIUM LEVEL TOTAL 2020-08-18 17:17:00 Rachana Willams MD And erson ALBUMIN LEVEL 2020-08-18 17:17:00 Rachana Willams MD Androbin n ALKALINE PHOSPHATASE 2020-08-18 17:17:00 Rachana Willams MD [...] URINE TOTAL PROTEIN 2020-08-18 06:00:00 Rachana Willams MD And erson .TOTAL VOLUME 2020-08-18 06:00:00 Rachana Willams MD [...] DIFFERENTIAL 2020-05-06 16:40:00 Rachana Willams MD And erson GLUCOSE LEVEL 2020-05-06 16:40:00 Rachana Willams MD [...] Willams MD ALANINE AMINOTRANSFERASE 2020-05-06 16:40:00 Rachana Wlilams ASPARTATE AMINOTRANSFERASE 2020-05-06 16:40:00 Rachana Willams MD [...] BLOOD COUNT W/ 2020-01-29 16:05:00 Jose Solomon MDon DIFFERENTIAL COMPREHENSIVE METABOLIC PANEL 2020-01-29 16:05:00 Jose Solomon MD MAGNESIUM LEVEL 2020-01-29 16:05:00 Jose Solomon MD URIC ACID 2020-01-29 16:05:00 Jose Solomon MD LACTATE DEHYDROGENASE 2020-01-29 16:05:00 Jose Solomon erson IMMUNOGLOBULIN M SERUM 2020-01-29 16:05:00 Jose Solomon MD derson IMMUNOFIXATION 2020-01-29 16:05:00 Jose Solomon MD ELECTROPHORESIS FREE LAMBDA LIGHT CHAIN 2020-01-29 16:05:00 Jose Solomon MD BETA 2 MICROGLOBULIN 2020-01-29 16:05:00 Jose Solomon MD rson PHOSPHORUS LEVEL 2020-01-29 16:05:00 Jose Solomon MD Results CBC 2020-01-29 16:05:00 Jose Solomon MD MANUAL DIFFERENTIAL 2020-01-29 16:05:00 Jose Solomon MD Simeon son GLUCOSE LEVEL 2020-01-29 16:05:00 Jose Solomon MD BLOOD UREA NITROGEN 2020-01-29 16:05:00 Jose Solomon MD Simeon son ELECTROLYTE PANEL 2020-01-29 16:05:00 Jose Solomon MDo n SERUM CREATININE 2020-01-29 16:05:00 Jose Solomon MD .GLOMERULAR FILTRATION RATE 2020-01-29 16:05:00 Jose Solomon MD CALCIUM LEVEL TOTAL 2020-01-29 16:05:00 Jose Solomon MD Simeon son ALBUMIN LEVEL 2020-01-29 16:05:00 Jose Solomon MD ALKALINE PHOSPHATASE 2020-01-29 16:05:00 Jose Solomon MD Jamaal rson ALANINE AMINOTRANSFERASE 2020-01-29 16:05:00 Jose Solomon [...] LEVEL 2019-10-30 12:41:00 Rachana Willams MD [facility] FOLATE LEVEL 2019-10-30 12:41:00 Rachana Willams MD Androbin woo Results CBC 2019-10-30 12:41:00 Rachana Willams MD Androbin woo MANUAL DIFFERENTIAL 2019-10-30 12:41:00 Rachana Willams MD And erson GLUCOSE LEVEL 2019-10-30 12:41:00 Rachana Willams MD Androbin woo BLOOD UREA NITROGEN 2019-10-30 12:41:00 Rachana Willams MD And erson ELECTROLYTE PANEL 2019-10-30 12:41:00 Rachana Willams MD [facility] SERUM CREATININE 2019-10-30 12:41:00 Rachana Willams MD Ravin on .GLOMERULAR FILTRATION RATE 2019-10-30 12:41:00 Racahna Willams MD CALCIUM LEVEL TOTAL 2019-10-30 12:41:00 Rachana Willams MD And erson ALBUMIN LEVEL 2019-10-30 12:41:00 Rachana Willams MD Androbin woo ALKALINE PHOSPHATASE 2019-10-30 12:41:00 Rachana Willams MD [...] Future Scheduled 2020-04-19 INFLUENZA VACCINE [place] [facility] 00:00:00 [code = INFLUENZA VACCINE] Future Scheduled 2006 COLONOSCOPY SCREENING [place] [facility] 00:00:00 [code = COLONOSCOPY SCREENING] Future Scheduled 2006 SHINGLES VACCINES [place] [facility] 00:00:00 (#1) [code = SHINGLES VACCINES (#1)] Future Scheduled 1972 COVID-19 VACCINE (#1) [place] [facility] 00:00:00 [code = COVID-19 VACCINE (#1)] Encounters Start End Encounter Admission Attending Care Care Encounter Source Date/Time Date/Time Type Type Clinicians Facility Department ID 2020-05-02 Outpatient RENITA LOZOYA MDA, MDA [id number] 15:38:29 Jessica woo 2020-08-20 2020-08-20 Outpatient AZAR SOLOMON MDA MDA [id number] 08:15:35 09:22:56 JOSE woo 2020-08-20 2020-08-20 Outpatient AZAR SOLOMON MDA MDA [id number] 09:21:28 09:21:28 JOSE Ortegaers o n 2020-08-18 2020-08-18 Outpatient AZAR WILLAMS MDA MDA [id number] 10:15:00 23:59:00 RACHANA Alicia o amna 2020-05-08 2020-05-08 Outpatient AZAR SOLOMON MDA MDA [id number] 08:44:03 09:03:11 JOSE Ortegaers o amna 2020-05-06 2020-05-06 Outpatient AZAR WILLAMS MDA MDA [id number] 09:00:00 23:59:00 RACHANA woo Results Test Description Test Test Results Result Source Time Comments Comments Protein Path InterpThe And erson Electrophoresis Path 02 follow-up serum Review 04:29:51 protein electrophoretic pattern showsthat the M-protein peak is still present. It does, however,show a mild decrease when compared to the previous M-proteinvalue of 1.3 gm/100 ml on 05/06/2020. 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 Transcribed Date/Time: 08.19.2020 22:29 PM CSTElectronically Signed By: MD Devin BASURTO [id number] on 08.19.2020 22:29 PM [facility] Serum Protein Electrophoresis 2020-08-20 04:29:50 Test Item [...] 0.7- 1.6 gm/dL Paraprotein1 (test code = 64845-9) 1.0 0.0- 0.0 gm/dL H YDLAN (test code = DYLAN) Labs a few days before visit Lab Interpretation (test code = Abnormal 75233-3) MD NesbittUrine Prot Electrophoresis Path [id number] 22:21:35U ProE Path IntThe follow-up urine protein electrophoretic pattern shows no definitive evidence of aBence-Waldrop protein peak.If a Bence-Waldrop proteinuria is suspected clinically, serum free light chain and urine immunofixation studies are recommended. 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 [facility] AndersonProtein Electrophoresis [id number] 22:21:34 Test Item Value Reference Range Interpretation Comments U Albumin % (test code = 66.0 % 30-50 H 7676) U Globulin% (test code = 34.0 % 50-70 L 8523) DYLAN (test code = DYLAN) Labs a few days before visit Lab Interpretation (test Abnormal code = 43532-6) MD NesbittQdvlfmcdSbJ6912-73-50 16:03:28 Test Item Value Reference Range Interpretation Comments IgA (test code = 5992) 1292 mg/dL 85-499 H DYLAN (test code = DYLAN) Labs a few days before visit Lab Interpretation (test Abnormal code = 06487-5) MD NesbittDiyeynly86ll Urine Total [id number] 21:54:33 Test Item Value Reference Range Interpretation Comments UTP (test code = 5 mg/dL <=149 Caution is advised when 7921) interpreting va lues greater than 555 mg/dL. Results requiring exten ded dilution beyond the manu facturer's recommendedlimi t may not dilute linearly due to potential matri x effect.Correlat ion with clinical contex t is recommended. UTP/TV (test code 250 = 7923) MD Thompson [place]/Free Lambda [id number] 20:30:42 Test Item Value Reference Range Interpretation Comments FKap/FLam RT (test code = 5566) 0.09 0.26-1.65 L Lab Interpretation (test code = Abnormal 13626-0) MD Thompson Lambda Light [id number] 20:30:41 Test Item Value Reference Range Interpretation Comments Free Lambda (test code = 279.59 mg/L 5.71-26.3 H 5630) DYLAN (test code = DYLAN) Labs a few days before visit Lab Interpretation (test Abnormal code = 03574-8) MD Thompson [place] Light [id number] 20:30:40 Test Item Value Reference Range Interpretation Comments Free [place] (test code = 24.03 mg/L 3.3-19.4 H 5629) DYLAN (test code = DYLAN) Labs a few days before visit Lab Interpretation (test Abnormal code = 36102-0) MD NesbittBeta 2 Envsptwqgevrd1608-93-58 20:30:39 Test Item Value Reference Range Interpretation Comments Beta2 Microglob (test code 3.5 mg/L 0.8-2.3 H = 5090) DYLAN (test code = DYLAN) Labs a few days before visit Lab Interpretation (test Abnormal code = 49602-2) MD NesbittOtwlqpvwWyH7696-85-52 20:30:38 Test Item Value Reference Range Interpretation Comments IgM (test code = 6023) 24 mg/dL 35-242 L DYLAN (test code = DYLAN) Labs a few days before visit Lab Interpretation (test Abnormal code = 23988-6) MD NesbittLzelijzzWmB2045-27-52 20:30:37 Test Item Value Reference Range Interpretation Comments IgG (test code = 6001) 887 mg/dL 610-1616 DYLAN (test code = DYLAN) Labs a few days before visit MD NesbittTotal [id number] 20:25:58 Test Item Value Reference Range Interpretation Comments Total Volume (test code 5000 mL 2916-7349 H Carter ection = 7650) date/time has b een modified to: 00:00 :00. Previous collection date/time: 11:03:00.Correc anni from 5000 mL [H I] on 08/18/20 14:25:58 BIBLICAL LANGUAGES PROFESSOR by Darnell Barnett. Hrs Collected (test code 24 Col lection = 5928) date/time has b een modified to: 00:00 :00. Previous collection date/time: 11:03:00.Correc anni from 24 [NA] on 08/18/20 14:25: 58 BIBLICAL LANGUAGES PROFESSOR by Darnell Barnett. Start Date (test code = 08/17/2020 Carter ection 7382) date/time has b een modified to: 00:00 :00. Previous collection date/time: 11:03:00.Correc anni from 08/17/20 0:00:00 BIBLICAL LANGUAGES PROFESSOR [NA ] on 08/18/20 14:25: 58 BIBLICAL LANGUAGES PROFESSOR by Darnell Barnett. End Date (test code = 08/18/2020 Collec tion 5510) date/time has b een modified to: 00:00 :00. Previous collection date/time: 11:03:00.Correc anni from 08/18/20 0:00:00 BIBLICAL LANGUAGES PROFESSOR [NA ] on 08/18/20 14:25: 58 BIBLICAL LANGUAGES PROFESSOR by Darnell Barnett. U24 Comment (test code = 2 jars Col lection 8547) date/time has b een modified to: 00:00 :00. Previous collection date/time: 11:03:00.Correc anni from 2 jars [NA ] on 08/18/20 14:25: 58 BIBLICAL LANGUAGES PROFESSOR by Darnell Barnett. Lab Interpretation (test Abnormal code = 34710-3) MD NesbittFractionated Rlvacvtxz7034-04-02 18:05:32 Test Item Value Reference Range Interpretation [...] days DYLAN) before visit MD NesbittGlomerular Filtration [id number] 18:05:30 Test Item Value Reference Range Interpretation [...] days = DYLAN) before visit MD NesbittUric [id number] 18:05:29 Test Item Value Reference Range Interpretation Comments Uric Acid (test code = 8.4 mg/dL 3.4-7 H 7955) DYLAN (test code = DYLAN) Labs a few days before visit Lab Interpretation (test Abnormal code = 00025-0) MD NesbittMagnesium [id number] 18:05:28 Test Item Value Reference Range Interpretation Comments Magnesium (test code = 2.0 mg/dL 1.6-2.6 6359) DYLAN (test code = DYLAN) Labs a few days before visit MD NesbittPhosphorus [id number] 18:05:27 Test Item Value Reference Range Interpretation Comments Phosphorus (test code = 4.1 mg/dL 2.5-4.5 6817) DYLAN (test code = DYLAN) Labs a few days before visit MD NesbittDkzyhybzLWG6221-32-97 18:05:26 Test Item Value Reference Range Interpretation [...] days = DYLAN) before visit MD NesbittCalcium [id number] 18:05:25 Test Item Value Reference Range Interpretation Comments Calcium Lvl (test code 9.8 mg/dL 8.4-10.2 = 5258) DYLAN (test code = DYLAN) Labs a few days before visit MD NesbittAlkaline Sfnrejxyezo0577-89-20 18:05:24 Test Item Value Reference Range Interpretation Comments Alk Phos (test code = 112 U/L 40-129 4768) DYLAN (test code = DYLAN) Labs a few days before visit MD [id number] 18:05:23 Test Item Value Reference Range Interpretation Comments ALT (test code = 4705) 22 U/L <=41 DYLAN (test code = DYLAN) Labs a few days before visit MD NesbittAlbumin [id number] 18:05:22 Test Item Value Reference Range Interpretation Comments Albumin Lvl (test code 4.1 3.5- 5.2 gm/dL = 4763) DYLAN (test code = DYLAN) Labs a few days before visit MD NesbittEsiytbdpWUL8177-78-80 18:05:21 Test Item Value Reference Range Interpretation Comments BUN (test code = 5055) 19 mg/dL 6-23 DYLAN (test code = DYLAN) Labs a few days before visit MD NesbittAspartate [id number] 18:05:19 Test Item Value Reference Range Interpretation Comments AST (test code = 4731) 30 U/L <=40 DYLAN (test code = DYLAN) Labs a few days before visit MD NesbittGlucose [id number] 18:05:18 Test Item Value Reference Range Interpretation Comments Glucose Level (test 114 mg/dL 70-99 H Referenc e range is code = 5699) valid for fasti ng specimens only. Guidelines established by the [place] [employer] [place] [employer] guidelines (Standards of Medical [...] visit Lab Interpretation Abnormal (test code = 77224-1) MD Nesbitt.Serum Frdczolxgi0288-50-86 18:05:16 Test Item Value Reference Range Interpretation Comments Creatinine (test code = 1.05 mg/dL 0.67-1.17 5399) DYLAN (test code = DYLAN) Labs a few days before visit MD NesbittTotal [id number] 18:05:15 Test Item Value Reference Range Interpretation Comments Total Protein (test 7.6 g/dL 6.4-8.3 code = 7649) DYLAN (test code = DYLAN) Labs a few days before visit MD NesbittTzkjuwtgRdpinkmechrd5859-87-87 17:33:02 Test Item Value Reference Range Interpretation [...] (test code = 0.03 K/uL 0-0.04 5954) DYLAN (test code = DYLAN) Labs a few days before visit Lab Interpretation Abnormal (test code = 43233-8) MD Nesbitt.JNK8611-05-42 17:32:59 Test Item Value Reference Range Interpretation [...] visit Lab Interpretation Abnormal (test code = 08572-2) MD NesbittUrine DORA Path [id number] 18:00:34UIFE Path IntThe follow-up urine protein immunofixation electrophoretic patterns obtained with the use of antisera against IgG, IgA, IgM, bound and free [place] and Lambda light chain proteins still showthe presence of a monotypic free lambda band in the gamma region. 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 Comment: CHRISTINA BRYAN MD PHD [id number] by: CHRISTINA BRYAN MD PHD [id number] Date/Time: 05.08.2020 13:00 PM CDT Transcribed Date/Time: 05.08.2020 13:00 PM CDTElectronically Signed By: CHRISTINA BRYAN MD PHD [id number] on 05.08.2020 13:[address] [address] [facility]MD AndersonIFE [id number] 18:00:33 Test Item Value Reference Range Interpretation Comments UIFE (test code = 7916) Lambda, +AL MD NesbittProtein Electrophoresis Path [id number] 19:02:42SPE Path InterpThe follow-up serum protein electrophoretic [...] 1403 6Dictated by: CHRISTINA BRYAN MD PHD [id number] Date/Time: 01.30.2020 14:02 PM CDT Transcribed Date/Time: 01.30.2020 14:02 PM CDTElectronically Signed By: CHRISTINA BRYAN MD PHD [id number] on 01.30.2020 14:02PM [facility] [id number] 19:02:41IFE Path IntThe follow-up serum protein immunofixation electrophoretic patterns obtained with the use of antisera against IgG, IgA, IgM, bound [place] and bound Lambda light chain proteins still show thepresence of two closely migrating IgA lambda M-protein bands in the beta-gamma junction region and suggest the possible presence of an indistinct lambda band that has a more cathodic migration.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 Comment: CHRISTINA BRYAN MD PHD [id number] by: CHRISTINA BRYAN MD PHD [id number] Date/Time: 01.30.2020 14:02 PM CDT Transcribed Date/Time: 01.30.2020 14:02 PM CDTElectronically Signed By: CHRISTINA BRYAN MD PHD [id number] on 01.30.2020 14:02 PM [facility]2020-[facility]-13 19:02:40 Test Item Value Reference Range Interpretation Comments DORA (test code = AL x2, see note 5948) DYLAN (test code = DYLAN) Schedule labs 2-3 business days prior to clinic visit [facility] Whole [id number] 12:22:35Negative for myeloma.Interface, Radiology Results In - [...] total hip arthroplastyIMPRESSION:Negative for myeloma.MD Nesbitt Glucose, [id number] 16:04:18 Test Item Value Reference Range Interpretation Comments Glucose Random (test 104 mg/dL 70-199 Effecti ve 04/14/16, the code = 9360) glucose referen ce intervals have been updated based o n [place] [employer] [place] [employer] vidal delines (Standards of [...]
--- NOTE | 2020-09-27 21:17 | RAD REPORT ---
EXAM DESCRIPTION: RAD - Chest Single View - 09/27/2020 8:43 pm CLINICAL HISTORY: Fall, chest pain COMPARISON: July 2028 TECHNIQUE: AP portable chest image was obtained 09/27/2020 8:43 pm . FINDINGS: Lungs are clear. Heart and vasculature are normal. No measurable pleural effusion and no p neumothorax. No acute bony abnormality seen. No acute aortic findings suspected. IMPRESSION: No acute cardiopulmonary process. No significant change from comparison study.
--- NOTE | 2020-09-27 21:22 | RAD REPORT ---
EXAM DESCRIPTION: CT - CTHCSPWOC - 09/27/2020 8:59 pm CLINICAL HISTORY: trauma COMPARISON: Head C Spine Mpr Wo Con dated 10/29/2017 TECHNIQUE: Axial 5 mm thick images of the head were obtained. Axial 2 mm thick images of the cervic al spine were obtained with sagittal and coronal reconstruction images generated and reviewed. All CT scans are performed using dose optimization technique as appropriate and may include automated exposure control or mA/KV adjustment according to patient size. FINDINGS: No intracranial hemorrhage, mass, edema or acute intracranial finding. No suspicion for ac the [place] infarction. Volume loss changes are present given the patient's age. Ventricles are in proportion to the volume loss. Chronic ischemic changes are minimal. Arterial and physiologic calcifications ar e present. Mastoid air cells and paranasal sinuses are clear. No globe or orbit abnormality seen. Cervical bodies are normal in height. Straightening of the usual cervical lordosis matches comparison . C5-6 and C6-7 disc space narrowing present with endplate spurring. Facet joint degenerative changes are present. Bony foraminal encroachment changes are present at C5-6 and C6-7. Spinal stenosis at C6 -7 present. These all match comparison. No fracture or acute bony abnormality. Central canal detail is inherently limited. No paraspinal mass or hematoma. IMPRESSION: Negative CT head examination for acute or significant finding. Atrophy and minimal chron ic ischemic change matches the comparison. Negative CT cervical spine examination for acute or significant finding. C5-6 and C6-7 spondylosis c hanges as detailed. Cervical spine findings are stable from 2018.
[2020-09-27 21:42] LABS: Absolute Lymphocytes (CBC) 1.6 K/uL (0.7-4.9); Basophils % 0.5 % (0-1.3); Hematocrit 36.9 % (39.6-49.0); Lymphocytes % 22.1 % (15.3-44.8); MPV 7.5 fL (7.6-11.3); RBC Red Blood Cell Count 3.71 M/uL (4.33-5.43)
[2020-09-27 21:47] LABS: Protime INR 0.91
[2020-09-27 22:09] LABS: ALT/SGPT 35 U/L (12-78); AST/SGOT 44 U/L (15-37); Albumin 3.3 g/dL (3.4-5.0); Alkaline Phosphatase 111 U/L (45-117); BUN Blood Urea Nitrogen 24 mg/dL (7-18); Bicarbonate 27 mmol/L (21-32); Bilirubin Direct 0.2 mg/dL (0-0.2); Bilirubin Total 0.2 mg/dL (0.2-1.0); Glucose Level 107 mg/dL (74-106); Magnesium 2.4 mg/dL (1.8-2.4); NT PRO-BNP 27 pg/mL (<125); Potassium 4.7 mmol/L (3.5-5.1); Protein, Total 8.4 g/dL (6.4-8.2); Sodium Level 132 mmol/L (136-145); Troponin (Emerg Dept Use Only) < 0.02 ng/mL (0.0-0.045)
--- NOTE | 2020-09-27 23:40 | ER ---
Nurse's Notes [facility] Name: Evan Ty Age: 64 yrs Sex: Male : 1955 Arrival Date: 09/27/2020 Time: 20:16 Bed 4 Private MD: Diagnosis: Presentation: 09/27 20:17 Chief complaint: EMS states: Reports they were toned out due pt fall, upon arrival they ea noted he was laying on his back. Pt reported he only drank two beers and when he left the bar he felt like his legs crumbled. BGL 80. Pt denies LOC. Coronavirus screen: At this time, the client does not indicate any symptoms associated with coronavirus-19. Ebola Screen: No symptoms or risks identified at this time. Initial Sepsis Screen: Does the patient meet any 2 criteria? No. Patient's initial sepsis screen is negative. Does the patient have a suspected source of infection? No. Patient's initial sepsis screen is negative. Risk Assessment: Do you want to hurt yourself or someone else? Patient reports no desire to harm self or others. Onset of symptoms was September 27, 2020. 20:17 Method Of Arrival: EMS: [facility] ea 20:17 Acuity: KELLEN 3 ea Triage Assessment: 20:21 General: Appears in no apparent distress. Behavior is appropriate for age. Pain: Denies ea pain. Historical: - Allergies: 20:21 No Known Allergies; ea - Home Meds: 20:21 Vitamin D Oral [Active]; pantoprazole 40 mg Oral TbEC 1 tab once daily [Active]; ea metoprolol succinate 200 mg Oral Tb24 1 tab once daily [Active]; magnesium oxide 500 mg Oral cap [Active]; Iron CR Oral [Active]; folic acid 400 mcg Oral tab 1 tab once daily [Active]; Edarbyclor 40-12.5 mg Oral tab 1 tab once daily [Active]; Edarbi 80 mg Oral tab 1 tab once daily [Active]; doxycycline hyclate 50 mg Oral cap 1 cap once daily [Active]; - PMHx: 20:21 multiple myeloma; Hypertension; GERD; blood disorder; ea - Immunization history:: Adult Immunizations up to date. - Social history:: Smoking status: Patient denies any tobacco usage or history of. Screenin:19 Abuse screen: Denies threats or abuse. Nutritional screening: No deficits noted. ea Tuberculosis screening: No symptoms or risk factors identified. Fall Risk No IV (0 pts). Assessment: 21:38 Reassessment: Patient and/or family updated on plan of care and expected duration. Pain ea level reassessed. Patient is alert, oriented x 3, equal unlabored respirations, skin warm/dry/pink. 22:34 Reassessment: Patient and/or family updated on plan of care and expected duration. Pain ea level reassessed. Patient is alert, oriented x 3, equal unlabored respirations, skin warm/dry/pink. Pt resting with eyes closed respirations even and unlabored, chest expansions even and symmetrical. 22:48 Reassessment: [phone]. ea 23:03 Reassessment: Patient and/or family updated on plan of care and expected duration. Pain ea level reassessed. Patient is alert, oriented x 3, equal unlabored respirations, skin warm/dry/pink. Patient states feeling better. 23:15 Reassessment: Patient and/or family updated on plan of care and expected duration. Pain ea level reassessed. Patient is alert, oriented x 3, equal unlabored respirations, skin warm/dry/pink. Pt ambulating to restroom, tolerating well. 23:20 Reassessment: Contacted at [phone]. ea Vital Signs: 20:17 BP 147 / 87; Pulse 84; Resp 18; Temp 98.1; Pulse Ox 100% on R/A; Weight 102.06 kg; ea Height 6 ft. (182.88 cm); 21:37 BP 138 / 75; Pulse 80; Resp 18; Pulse Ox 99% ; ea 22:35 BP 135 / 78; Pulse 78; Resp 18; Pulse Ox 98% on R/A; ea 20:17 Body Mass Index 30.52 (102.06 kg, 182.88 cm) ea ED Course: 20:16 Patient arrived in ED. rv 20:16 Gadiel Biggs MD is Attending Physician. [facility] 20:17 Sharifa Oliva, YAS is Primary Nurse. ea 20:19 Triage completed. ea 20:19 Arm band placed on right wrist. Patient placed in an exam room, on a stretcher, on ea pulse oximetry. 20:20 Patient has correct armband on for positive identification. Call light in reach. Side ea rails up X2. 20:43 XRAY Chest (1 view) In Process Unspecified. EDMS 20:46 Inserted saline lock: 20 gauge in right forearm, using aseptic technique. ea 20:59 CT Head C Spine In Process Unspecified. EDMS 23:07 No provider procedures requiring assistance completed. IV discontinued, intact, ea bleeding controlled, No redness/swelling at site. Pressure dressing applied. Administered Medications: No medications were administered Outcome: 23:39 Eloped from patient exam room, after seeing physician Time discovered patient gone: ea September 27, 2020 at 23:39 23:52 Condition: good rv 23:52 Patient left the ED. rv Signatures: Dispatcher [employer] EDSharifa Parish RN Karson Ndiaye ea RN RN Gadiel Madrigal MD MD [email or web address] Corrections: (The following items were deleted from the chart) 20:19 20:17 Chief complaint: EMS states: Reports they were toned out due pt fall, upon ea arrival they noted he was laying on his back. Pt reported he only drank two beers and when he left the bar he felt like his legs crumbled ea 20:21 20:17 Chief complaint: EMS states: Reports they were toned out due pt fall, upon ea arrival they noted he was laying on his back. Pt reported he only drank two beers and when he left the bar he felt like his legs crumbled. BGL 80 ea
--- NOTE | 2020-09-27 23:40 | EDPHYS ---
Physician Documentation [facility] Name: Evan Ty Age: 64 yrs Sex: Male : 1955 Arrival Date: 09/27/2020 Time: 20:16 Bed 4 Private MD: ED Physician Gadiel Biggs HPI: 09/27 20:37 This 64 yrs old Male presents to ER via EMS with complaints of Fall. mh7 20:37 Details of fall: The patient fell from an upright position, while walking. Onset: The mh7 symptoms/episode began/occurred just prior to arrival, today. Associated injuries: The patient sustained no obvious injury. Severity of symptoms: At their worst the symptoms were moderate, earlier today, in the emergency department the symptoms have improved, moderately. Patient states that he had been drinking at a bar then when he left his legs felt wobbly and he fell. He denies any head injury or LOC. He denies any neck pain, chest pain, abdominal pain, SOB, fever, nausea, vomiting, numbness/tingling, or weakness.. Historical: - Allergies: 20:21 No Known Allergies; ea - Home Meds: 20:21 Vitamin D Oral [Active]; pantoprazole 40 mg Oral TbEC 1 tab once daily [Active]; ea metoprolol succinate 200 mg Oral Tb24 1 tab once daily [Active]; magnesium oxide 500 mg Oral cap [Active]; Iron CR Oral [Active]; folic acid 400 mcg Oral tab 1 tab once daily [Active]; Edarbyclor 40-12.5 mg Oral tab 1 tab once daily [Active]; Edarbi 80 mg Oral tab 1 tab once daily [Active]; doxycycline hyclate 50 mg Oral cap 1 cap once daily [Active]; - PMHx: 20:21 multiple myeloma; Hypertension; GERD; blood disorder; ea - Immunization history:: Adult Immunizations up to date. - Social history:: Smoking status: Patient denies any tobacco usage or history of. ROS: 20:37 Constitutional: Negative for fever, chills, and weight loss, Eyes: Negative for injury, mh7 pain, redness, and discharge, ENT: Negative for injury, pain, and discharge, Neck: Negative for injury, pain, and swelling, Cardiovascular: Negative for chest pain, palpitations, and edema, Respiratory: Negative for shortness of breath, cough, wheezing, and pleuritic chest pain, Abdomen/GI: Negative for abdominal pain, nausea, vomiting, diarrhea, and constipation, Back: Negative for injury and pain, : Negative for injury, bleeding, discharge, and swelling, MS/Extremity: Negative for injury and deformity, Skin: Negative for injury, rash, and discoloration, Neuro: Negative for headache, weakness, numbness, tingling, and seizure, Psych: Negative for depression, anxiety, suicide ideation, homicidal ideation, and hallucinations, Allergy/Immunology: Negative for hives, rash, and allergies, Endocrine: Negative for neck swelling, polydipsia, polyuria, polyphagia, and marked weight changes, Hematologic/Lymphatic: Negative for swollen nodes, abnormal bleeding, and unusual bruising. Exam: 20:37 Head/Face: Normocephalic, atraumatic. Eyes: Pupils equal round and reactive to light, mh7 extra-ocular motions intact. Lids and lashes normal. Conjunctiva and sclera are non-icteric and not injected. Cornea within normal limits. Periorbital areas with no swelling, redness, or edema. ENT: Nares patent. No nasal discharge, no septal abnormalities noted. Tympanic membranes are normal and external auditory canals are clear. Oropharynx with no redness, swelling, or masses, exudates, or evidence of obstruction, uvula midline. Mucous membranes moist. Neck: Trachea midline, no thyromegaly or masses palpated, and no cervical lymphadenopathy. Supple, full range of motion without nuchal rigidity, or vertebral point tenderness. No Meningismus. Chest/axilla: Normal chest wall appearance and motion. Nontender with no deformity. No lesions are appreciated. Cardiovascular: Regular rate and rhythm with a normal S1 and S2. No gallops, murmurs, or rubs. Normal PMI, no JVD. No pulse deficits. Respiratory: Lungs have equal breath sounds bilaterally, clear to auscultation and percussion. No rales, rhonchi or wheezes noted. No increased work of breathing, no retractions or nasal flaring. Abdomen/GI: Soft, non-tender, with normal bowel sounds. No distension or tympany. No guarding or rebound. No evidence of tenderness throughout. Back: No spinal tenderness. No costovertebral tenderness. Full range of motion. Skin: Warm, dry with normal turgor. Normal color with no rashes, no lesions, and no evidence of cellulitis. MS/ Extremity: Pulses equal, no cyanosis. Neurovascular intact. Full, normal range of motion. 20:37 Psych: Awake, alert, with orientation to person, place and time. Behavior, mood, and affect are within normal limits. 20:37 Constitutional: The patient appears in no acute distress, alert, awake, smells of alcohol, ETOH, Appears intoxicated 20:37 Neuro: Orientation: to person, place \T\ time. Mentation: is normal, Memory: is normal, immediate memory is intact, recent memory is intact, remote memory is intact, Cranial nerves: grossly normal, Cerebellar function: is grossly normal based on the patient's age, Motor: is normal, Sensation: is normal, Gait: not tested. Deep tendon reflexes are normal, Babinski testing is normal, seizure activity, is not displayed by the patient, Abnormal movements: there are no abnormal movements. Vital Signs: 20:17 BP 147 / 87; Pulse 84; Resp 18; Temp 98.1; Pulse Ox 100% on R/A; Weight 102.06 kg; ea Height 6 ft. (182.88 cm); 21:37 BP 138 / 75; Pulse 80; Resp 18; Pulse Ox 99% ; ea 22:35 BP 135 / 78; Pulse 78; Resp 18; Pulse Ox 98% on R/A; ea 20:17 Body Mass Index 30.52 (102.06 kg, 182.88 cm) ea MDM: 23:11 Differential diagnosis: abrasion, closed head injury, contusion, Alcohol Intoxication. [facility] Data reviewed: vital signs, nurses notes, EMS record, lab test result(s), cardiac enzymes, CBC, drug level(s), alcohol, electrolytes, EKG, radiologic studies, CT scan. Data interpreted: Pulse oximetry: on room air is 98 %. Interpretation: normal. Counseling: I had a detailed discussion with the patient and/or guardian regarding: the historical points, exam findings, and any diagnostic results supporting the discharge/admit diagnosis, lab results, radiology results, the need for outpatient follow up, to return to the emergency department if symptoms worsen or persist or if there are any questions or concerns that arise at home. Response to treatment: the patient's symptoms have markedly improved after treatment. 09/27 20:29 Order name: Basic Metabolic Panel; Complete Time: 22:40 09/27 20:29 Order name: CBC with Diff; Complete Time: 21:58 09/27 20:29 Order name: LFT's; Complete Time: 22:40 09/27 20:29 Order name: Magnesium; Complete Time: 22:40 09/27 20:29 Order name: NT PRO-BNP; Complete Time: 22:40 09/27 20:29 Order name: PT-INR; Complete Time: 21:58 09/27 20:29 Order name: Troponin (emerg Dept Use Only); Complete Time: 22:40 09/27 20:29 Order name: XRAY Chest (1 view); Complete Time: 21:58 09/27 20:29 Order name: EKG; Complete Time: 20:30 09/27 20:29 Order name: Cardiac monitoring; Complete Time: 20:46 09/27 20:29 Order name: EKG - Nurse/Tech; Complete Time: 20:46 09/27 20:29 Order name: ETOH Level; Complete Time: 22:40 09/27 20:29 Order name: CT Head C Spine; Complete Time: 21:58 09/27 20:29 Order name: IV Saline Lock; Complete Time: 20:46 09/27 20:29 Order name: Labs collected and sent; Complete Time: 20:46 09/27 20:29 Order name: O2 Per Protocol; Complete Time: 20:46 09/27 20:29 Order name: O2 Sat Monitoring; Complete Time: 20:46 mh7 Administered Medications: No medications were administered Disposition: 09/27/20 23:40 Patient left the facility after being seen by provider. - Patient left due to unknown. Signatures: Dispatcher [employer] Sharifa Hi RN RN ea Vicente, Ronaldo, RN RN rv Holmes, Maurice, MD MD 7 Corrections: (The following items were deleted from the chart) 23:52 23:40 09/27/2020 23:40 Patient left the facility after being seen by provider. Reason rv stated they are leaving due to unknown. carlyn
[2020-09-27 23:57] VITALS: TEMP 98.1
[2020-09-28 00:39] VITALS: BP 135/78; O2SAT 98
--- NOTE | 2020-09-28 07:25 | EKG ---
Test Date: 2020-09-27 Test Time: 20:35:46 [employer] Technician: KEVAN MEASUREMENT RESULTS: Intervals: Rate: 79 [place]: 184 QRSD: 92 QT: 364 QTc: 417 [place]: P: 58 [place]: 184 QRS: 36 T: 45 INTERPRETIVE STATEMENTS: Sinus rhythm with occasional premature ventricular complexes Otherwise normal ECG Compared to ECG 07/25/2020 14:01:46 Ventricular premature complex(es) now present Electronically Signed On 09-28-20 07:23:56 PRODUCT MARKETER by Daren Kruger
== END 2020-09-27 23:52 | disposition left against medical advice (07) ==
LOC: ER 20:09
DX: Z04.3 Encounter for examination and observation following other accident (principal); Z53.20 Procedure and treatment not carried out because of patient's decision for unspecified reasons; F10.129 Alcohol abuse with intoxication, unspecified; Y90.8 Blood alcohol level of 240 mg/100 ml or more; I10 Essential (primary) hypertension; K21.9 Gastro-esophageal reflux disease without esophagitis; C90.00 Multiple myeloma not having achieved remission
CPT/HCPCS: 36415; 70450; 71045; 72125; 80048; 80076; 80320; 83735; 83880; 84484; 85025; 85610; 93005; 99284